=== PATIENT | male | born 1960 | race Caucasian/White ===

== ENCOUNTER 2017-06-11 09:56 | Day surgery (SDC) | payer BC, SELFPAY ==
[2017-06-11 10:13] VITALS: BP 153/92; RESP 16; TEMP 36.6; O2SAT 97; BMI 34.2
--- NOTE | 2017-06-11 12:00 | COLBX_PTH ---
PATIENT: JOSHUA CARR LOC: EN U#:[id number] AGE/SX: 57/M ROOM: RE06/11/[address]: Dr. Helen Bradford MD : 1960 BED: DIS: 06/11/2017 SPEC #: [id number] RECD: 06/11/17 15:18 STATUS: MOISES MICHELLE #: [id number] KEVIN: 06/11/17 12:[address]: Helen Bradford DEPT: SURGICAL PATHOLOGY RECD BY: Michele Sheriff ENTERED: 06/12/17 09:32 SP TYPE: COLON BX OTHR DR: Dr. Anjel Li MD Tissues: Descending colon Procedures: Surgery Specimen Level IV HEADER OPERATION: Colonoscopy PRE-OP DIAGNOSIS: Screening TISSUE SUBMITTED: Descending colon polyp biopsy MICROSCOPIC DIAGNOSIS Descending colon polyp, biopsy: Fragments of colonic mucosa, no pathologic diagnosis. Negative for adenomatous changes. SJ:leon 06/13/17 MICROSCOPIC DESCRIPTION Slides are reviewed. GROSS DESCRIPTION Received in fixative is one container labeled with the patient's name and designated descending colon polyp biopsy. The specimen consists of two irregular fragments of light saravia soft tissue that in aggregate measure 0.6 x 0.3 x 0.1 cm. The specimen is totally submitted in one cassette. / SJ:leon 06/12/17 TC:4 CPT: 57239
[2017-06-11 12:10] VITALS: BP 120/68; BP 153/92; PULSE 62; RESP 16; TEMP 36.3; O2SAT 98
[2017-06-11 12:15] VITALS: BP 130/72; BP 153/92; PULSE 62; RESP 16; O2SAT 98
[2017-06-11 12:20] VITALS: BP 133/63; BP 153/92; PULSE 59; O2SAT 97
[2017-06-11 12:25] VITALS: BP 135/63; BP 153/92; PULSE 63; RESP 16; TEMP 36.4; O2SAT 99
--- NOTE | 2017-06-11 12:54 | PCM.OPRPT ---
Report of Operation Date of Procedure: 06/11/17 Pre-Operative Diagnosis: Screening for colon cancer Post-Operative Diagnosis: Descending colon polyp Surgery/Procedure Performed:: Colonoscopy with cold forceps biopsy Type of Anesthesia:: MAC Specimen's removed: Descending colon polyp Estimated Blood Loss (mL): Minimal Description of Procedure: Procedure: Colonoscopy After reviewing the risks benefits, the patient was deemed in satisfactory condition to undergo procedure. After obtaining informed consent, the scope was passed under direct visualization. Throughout the procedure, the patient's blood pressure pulse and position saturations were monitored continuously anesthesia. The colonoscope was introduced through the anus and advanced to the cecum, identified by the appendiceal orifice, IC valve and transillumination. The colonoscopy was performed without difficulty. The patient tolerated procedure well. Quality of bowel prep was good. Findings: The perianal and digital rectal exam were normal. Small descending colon polyp was removed with cold forceps biopsy. Mild diverticulosis was noted of the descending colon. Anastomosis appears to be well-healed status post sigmoid colectomy for diverticulitis. Otherwise the colon (entire examined portion) appeared normal. Retroflexed view of the distal rectum and anal verge was normal and showed no anal or rectal abnormalities Impression: 1. Small sigmoid colon polyp. Biopsied 2. Mild diverticulosis of the sigmoid colon 3. The distal rectal and anal verge were normal on retroflexed view. Recommendations: Await biopsy Continue high-fiber diet Repeat colonoscopy in 3-5 years for screening purposes depending on biopsy - Complications none
[2017-06-11 13:01] VITALS: BP 153/92
== END 2017-06-11 13:01 | disposition home or self-care (01) ==
LOC: EN 10:00 → AC 10:06
PROVIDERS: Family Provider Family Medicine; PCP Family Medicine; Visit Provider Surgery
PROC: 0DJD8ZZ Inspection of Lower Intestinal Tract, Via Natural or Artificial Opening Endoscopic (ICD-10-PCS; CPT 45378; principal; 2017-06-11 10:55)
DX: Z12.11 Encounter for screening for malignant neoplasm of colon (principal); K63.5 Polyp of colon; K57.30 Diverticulosis of large intestine without perforation or abscess without bleeding; Z90.49 Acquired absence of other specified parts of digestive tract; I25.10 Atherosclerotic heart disease of native coronary artery without angina pectoris; I25.2 Old myocardial infarction; I10 Essential (primary) hypertension; Z87.891 Personal history of nicotine dependence; E78.00 Pure hypercholesterolemia, unspecified; E66.9 Obesity, unspecified; Z68.34 Body mass index [BMI] 34.0-34.9, adult; Z95.1 Presence of aortocoronary bypass graft; Z79.82 Long term (current) use of aspirin; Z79.899 Other long term (current) drug therapy; Z86.73 Personal history of transient ischemic attack (TIA), and cerebral infarction without residual deficits
CPT/HCPCS: 45380; 88305; J7120

== ENCOUNTER → 2018-07-31 09:21 | Outpatient (CLI) | payer BC, SELFPAY | PROVIDERS: Family Provider Family Medicine; PCP Family Medicine; Referring Provider Family Medicine; Visit Provider Family Medicine | DX: L02.91 Cutaneous abscess, unspecified (principal) | CPT/HCPCS: 87070; 87205 ==

== ENCOUNTER → 2018-10-26 07:07 | Outpatient (CLI) | payer BC, SELFPAY ==
[2018-10-26 08:26] LABS: Anion Gap 5 (5-15); BUN 36 mg/dL (7-18); BUN/Creat Ratio 21.3 RATIO (10-20); Calcium,Total 8.1 mg/dL (8.5-10.1); Chloride 103 mmol/L (98-107); Cholesterol 215 mg/dL (200); Creatinine, Serum 1.69 mg/dL (0.70-1.30); EST Glomerular Filtration Rate 45 mL/min (>60); Est Glom Filt Rate - Afr Amer 54 mL/min (>60); Glucose 192 mg/dL (74-106); High Density Lipoprotein 26 mg/dL; Potassium 3.5 mmol/L (3.5-5.1); Sodium Level 138 mmol/L (136-145); Triglycerides 475 mg/dL
== END ==
PROVIDERS: Family Provider Family Medicine; PCP Family Medicine; Referring Provider Family Medicine; Visit Provider Family Medicine
DX: I10 Essential (primary) hypertension (principal); R35.8 Other polyuria
CPT/HCPCS: 36415; 80048; 80061

== ENCOUNTER → 2018-11-02 07:19 | Outpatient (CLI) | payer BC, SELFPAY ==
[2018-11-02 08:08] LABS: Anion Gap 7 (5-15); BUN 29 mg/dL (7-18); BUN/Creat Ratio 18.1 RATIO (10-20); Calcium,Total 8.4 mg/dL (8.5-10.1); Chloride 105 mmol/L (98-107); EST Glomerular Filtration Rate 48 mL/min (>60); Est Glom Filt Rate - Afr Amer 58 mL/min (>60); Glucose 182 mg/dL (74-106); Potassium 3.5 mmol/L (3.5-5.1); Sodium Level 141 mmol/L (136-145)
== END ==
PROVIDERS: Family Provider Family Medicine; PCP Family Medicine; Referring Provider Family Medicine; Visit Provider Family Medicine
DX: R94.4 Abnormal results of kidney function studies (principal)
CPT/HCPCS: 36415; 80048

== ENCOUNTER → 2019-03-12 09:22 | Outpatient (CLI) | payer SELFPAY ==
--- NOTE | 2019-03-12 09:25 | RAD_ITS ---
STUDY: X-RAY CHEST REASON FOR EXAM: Male, 58 years old. Shortness of breath. History of ID and quadruple bypass, 2005. TECHNIQUE: PA and lateral views of the chest. COMPARISON: October 06, 2016. FINDINGS: The lungs are well-expanded. There is coronary interstitial coarsening without focal mass or infiltrate. There is no demonstrated pleural abnormality. Sternal cerclage wires and vascular clips are present from a prior sternotomy and coronary artery bypass graft procedure (CABG). The heart is normal in size. Normal mediastinum and ana. Normal visualized pulmonary arteries. Normal visualized aortic arch and descending thoracic aorta. There are diffuse degenerative changes of the visualized thoracic spine. There is degenerative osteoarthritis of the bilateral shoulders. There is no demonstrated abnormality of the visualized soft tissue structures of the upper abdomen. RAD/Chest PA and Lateral IMPRESSION: 1. Evidence of CABG procedure. 2. Chronic interstitial coarsening without acute cardiopulmonary disease. Electronically Signed: Armand Lynch DO at 16:57 EST Tel [phone], Service support ,
[2019-03-12 10:15] LABS: Absolute Lymphocyte Count 1.38 X10^3/uL (0.83-4.51); Absolute Neutrophil Count 6.6 X10^3/uL (2.0-7.7); Basophil# 0.04 X10^3/uL; Basophil% 0.4 % (0-1); Eosinophil# 0.07 X10^3/uL; Eosinophils% 0.8 % (0-5); Hematocrit 49.3 % (40-54); Hemoglobin 16.3 g/dL (13.0-16.5); Lymphocyte # 1.38 X10^3/ul (4.0); Lymphocyte % 15.5 % (19-41); Mean Corp Hgb Conc 33.1 g/dL (32-36); Mean Corpuscular Hgb 29.6 pg (27.0-32.0); Mean Corpuscular Volume 89.6 fL (80-94); Mean Platelet Vol. 10.4 fl (6.2-12.0); Monocyte# 0.74 X10^3/uL; Monocyte% 8.3 % (0-10); NRBC Flagged by Analyzer 0 % (0-5); Neutrophil # 6.57 X10^3/uL (2.7-7.7); Neutrophil % 73.9 % (47-70); Platelet Count 254 K/mm3 (150-450); RBC Distribution Width CV 13.3 % (11.6-14.6); RBC Distribution Width SD 43.4 fl (35.1-43.9); White Blood Count 8.9 K/mm3 (4.4-11.0)
[2019-03-12 10:45] LABS: Anion Gap 8 (5-15); BUN 27 mg/dL (7-18); BUN/Creat Ratio 18.4 RATIO (10-20); Calcium,Total 8.5 mg/dL (8.5-10.1); Chloride 104 mmol/L (98-107); Creatinine, Serum 1.47 mg/dL (0.70-1.30); EST Glomerular Filtration Rate 52 mL/min (>60); Est Glom Filt Rate - Afr Amer 63 mL/min (>60); Glucose 143 mg/dL (74-106); Potassium 3.2 mmol/L (3.5-5.1); Sodium Level 142 mmol/L (136-145)
== END ==
PROVIDERS: Family Provider Family Medicine; PCP Family Medicine; Referring Provider Family Medicine; Visit Provider Family Medicine
DX: R06.02 Shortness of breath (principal)
CPT/HCPCS: 36415; 71046; 80048; 83880; 85025

== ENCOUNTER 2019-03-24 11:22 | Inpatient (IN) | payer SELFPAY ==
[2019-03-24] VITALS (13 sets, daily range): BP systolic 149–189; BP diastolic 100–125; PULSE 94–115; RESP 13–20; TEMP 36.6–37; O2SAT 94–99; BMI 39.8; BMI 39.6; BMI 39.7
--- NOTE | 2019-03-24 11:57 | ED.VIS.GEN ---
History of Present Illness Chief Complaint: Shortness of Breath Informant: Patient Current Severity: Moderate Maximum Severity: Moderate Narrative: Patient arrives via private car from an outside ED. Apparently he was to be direct admitted but patient refused transport and decided to transport himself. He arrives to the emergency department. He is presenting as shortness of breath and was found to have pulmonary edema as well as elevated natruretic peptide. He was ruled out for a pulmonary embolism. Patient denies chest pain. Past Medical History - Allergies and Home Meds Allergies/Adverse Reactions: Allergies codeine Allergy (Verified 03/24/19 11:22) Rash Primary Care Physician: Anjel Li MD [Primary Care Provider] - Past Medical History: - - Coronary disease, hypertension, hypercholesterolemia Surgical History: coronary bypass surgery Smoking Status: Current every day smoker - Family History Maternal Family History: Reports: No pertinent history Review of Systems General: Denies: Fever Eyes: Denies: Visual changes - bilaterally Cardiovascular: Denies: Chest pain Respiratory: Reports: Dyspnea, Cough Gastrointestinal: Denies: Abdominal pain, Nausea Musculoskeletal: Denies: Myalgias, Arthralgias Neurological: Denies: Headache, Weakness Psych: Denies: Depression Endocrine: Denies: Polyuria Hematologic: Denies: Easy bruising Physical Exam Vital Signs/Narrative: Vital Signs Temp Pulse Resp BP Pulse Ox 03/24/19 11:45 108 H 18 183/110 H 94 03/24/19 11:33 113 H 13 96 03/24/19 11:23 98.0 F 115 H 17 189/125 H 96 General: Well nourished, Well developed Eyes: Negative for: Pale conjunctiva ENT: Moist mucous membranes Neck: Supple Cardiovascular: Regular rate, Regular rhythm Respiratory: - - Coarse bilateral breath sounds Abdomen: Soft Back: Nontender Extremities: - - Bilateral lower extremity edema Skin: Normal color Neurological: Alert, Oriented x3 Psychological: Normal affect Diagnostic/Tx/Re-eval - Medical Decision Making I reviewed outpatient work-up. Patient will receive Lasix and I will admit him upstairs. Admit stable condition ED Disposition - Plan for ED Patient: Disposition: [facility] Diagnosis: CHF (congestive heart failure) Referrals: Anjel Li MD [Primary Care Provider] -
--- NOTE | 2019-03-24 12:06 | EKG12_ITS ---
Test Reason : CHF Blood Pressure : / mmHG Vent. Rate : 101 BPM Atrial Rate : 101 BPM P-R Int : 132 ms QRS Dur : 092 ms QT Int : 378 ms P-R-T Axes : 072 085 247 degrees QTc Int : 490 ms Sinus tachycardia with occasional Premature ventricular complexes Possible Left atrial enlargement ST & T wave abnormality, consider inferolateral ischemia Abnormal ECG Confirmed by IWONA ALANIS, DWIANE ([id number]), editor news SANTI JIMÉNEZ ([id number]) on 03/26/2019 1:55:20 PM Referred By: Kaz Caesy Confirmed By:DWAINE BUSTILLO MD
--- NOTE | 2019-03-24 12:37 | HP.PCM_ITS ---
Problem List (1) CHF (congestive heart failure) Status: Chronic Qualifiers: Heart failure type: combined systolic and diastolic Heart failure chronicity: acute on chronic Qualified Code(s): I50.43 - Acute on chronic combined systolic (congestive) and diastolic (congestive) heart failure (2) Status post laparoscopic-assisted sigmoidectomy Status: Chronic Comment: 01/18/17 (3) S/P partial colectomy Status: Chronic Comment: 01/2017 (4) S/P left knee surgery Status: Chronic (5) History of carpal tunnel surgery Status: Acute (6) Benign essential hypertension Status: Chronic (7) Obesity Status: Chronic (8) Tobacco user Status: Chronic (9) CAD (coronary artery disease) Status: Chronic (10) Diverticulitis large intestine Status: Inactive History of Present Illness Date of Admission: 03/24/19 Chief Complaint: Shortness of breath for about 7 to 10 days The patient is a 58 year old M with history of coronary artery disease status post CABG, triple-vessel CVA, dyslipidemia and hypertension is being admitted through ER for progressive worsening of shortness of breath for about 2 weeks. He went to see his PCP and was given Z-Syed for presumed bronchitis but it did not get better and second time he was given prednisone but is still short of breath therefore went to [facility] ER. Patient positive of orthopnea for about 1 week, PND and dyspnea on exertion which progressed to dyspnea at rest. In [facility] ER his pulse ox was 96% on room air. On review of blood work, WBC 10.2 thousand neutrophils 88%, d-dimer 234, troponin 0 0.073, proBNP 2027, BUN/creatinine 30/1.66, glucose 223. CTPA was done for elevated d-dimer and reported a small bilateral pleural effusion. No PE. Multiple bilateral pulmonary nodules measuring up to 8 mm. Patient then came to our ER through his own vehicle as he does not have insurance for transfer. In our ER, heart rate 115, blood pressure 189/125, respiratory rate 17, pulse ox 96% on room air. EKG was done and shows T wave inversion in 1, V3 to V4. Enlargement ER, he got Lasix 40 mg IV and aspirin. Past Medical History Past Medical History (Chronic Problems): Chronic Problems (Last Reviewed 05/24/17 @ 09:04 by Silke Billingsley) CHF (congestive heart failure) (Chronic) Status post laparoscopic-assisted sigmoidectomy (Chronic) 01/18/17 S/P partial colectomy (Chronic) 01/2017 S/P left knee surgery (Chronic) Benign essential hypertension (Chronic) Obesity (Chronic) Tobacco user (Chronic) CAD (coronary artery disease) (Chronic) Medical History: Medical History (Last Reviewed 05/24/17 @ 09:04 by Silke Billingsley) Benign essential hypertension (Chronic) I10 Obesity (Chronic) E66.9 Tobacco user (Chronic) Z72.0 CAD (coronary artery disease) (Chronic) I25.10 Diverticulitis large intestine (Acute) K57.32 Allergies codeine Allergy (Verified 03/24/19 11:22) Rash Home Medications: Ambulatory Orders Medication Instructions Recorded Amlodipine Besylate [Norvasc] 10 mg PO DAILY 10/06/16 Fenofibrate 160 mg PO DAILY 10/06/16 Lisinopril [Zestril] 20 mg PO BID 10/06/16 Potassium Chloride [Klor-Con 10] 20 meq PO BID 10/06/16 Triamterene/Hydrochlorothiazid 1 ea PO DAILY 10/06/16 [Dyazide 37.5-25 Capsule] Aspirin 81 mg PO DAILY 01/05/17 Escitalopram Oxalate [Lexapro] 10 tab PO DAILY 01/05/17 Surgical History: Surgical History (Last Reviewed 05/24/17 @ 09:04 by Silke Billingsley) Status post laparoscopic-assisted sigmoidectomy (Acute) Z90.49 01/18/17 S/P partial colectomy (Acute) Z90.49 01/2017 S/P left knee surgery (Acute) Z98.890 History of carpal tunnel surgery (Acute) Z92.89 Surgical History: coronary bypass surgery Smoking Status: Current every day smoker Tobacco Use: Cigarettes - 1 pack in about 3 days started in teenage age - *Family History Maternal History Items: No pertinent history Review of Systems Constitutional: Denies: Chills, Fever HEENT: Denies: Head Aches, Sinus Congestion, Sinus Drainage Cardiovascular: Denies: Chest Pain, Chest Pressure, Palpitations Respiratory: Reports: Cough, Shortness of Breath, Shortness of breath at rest, Shortness of breath upon exertion, Sputum production Gastrointestinal: Denies: Abdominal Pain, Nausea, Vomiting Genitourinary: Denies: Dysuria, Frequency Musculoskeletal: Denies: Joint Pain, Joint Tenderness Skin: Denies: Rash, Wounds Neurological: Denies: Numbness, Tingling, Focal weakness Psychiatric: Reports: Anxiety. Denies: Depression, Homicidal Ideations, Suicidal Ideations Hematologic/ Lymphatic: Denies: Easy Bruising, Easy Bleeding VTE Information - Inpt Only VTE Present on Admission: Yes VTE Mechan Device Prophylaxis: None VTE Pharm Prophylaxis ordered?: Yes - Physical Exam Vitals/I&O's: Vital Signs Temp Pulse Resp BP Pulse Ox 98.0 F 101 H 20 H 156/103 H 94 03/24/19 11:23 03/24/19 12:06 03/24/19 12:06 03/24/19 12:06 03/24/19 12:06 Oxygen Delivery Method Room Air Weight: 262 lb Body Mass Index (BMI) 39.8 General: Alert, Oriented x3, Cooperative HEENT: Atraumatic, PERRLA, EOMI, Normocephalic Oral: Dry Mucosa Neck: Supple, No JVD, Negative Carotid Bruits Lungs: Diminished - Air entry diminished in bilateral lung bases., Rales - Bilateral, Short of Breath, Tachypneic - lower bases coarse rales present Cardiovascular: Regular rate, Regular Rhythm, Normal S1, Normal S2, No murmurs, - - Occasional PVC present Abdomen: Bowel Sounds Present, Soft, Non Tender, Distended - Feels mild distention Extremities: Capillary Refill Less than 3 Seconds, Edema Skin: No rashes, No breakdown Musculoskeletal: No Tenderness to Palpation of Joints or Extremities, Arthritic Changes Neurological: Cranial nerves II-XII grossly intact, Deep Tendon Reflexes 2+/4 and Symmetrical, Neuro grossly intact Psych/Mental Status: Normal Affect, Appropriate Assessment/Plan All Active Problems (Last Reviewed 05/24/17 @ 09:04 by Silke Billingsley) History of carpal tunnel surgery (Acute) The patient is a 58 year old M with history of coronary artery disease status post CABG, triple-vessel CVA, dyslipidemia and hypertension is being admitted through ER for progressive worsening of shortness of breath for about 2 weeks. He went to see his PCP and was given Z-Syed for presumed bronchitis but it did not get better and second time he was given prednisone but is still short of breath therefore went to [facility] ER. Patient positive of orthopnea for about 1 week, PND and dyspnea on exertion which progressed to dyspnea at rest. 1. Acute on chronic heart failure with preserved EF: Patient had patient had last cath in January 2017 reported as EF 60%. [place] to mid LAD patent. Saphenous graft to circumflex is totally occluded. Saphenous vein graft to RPDA proximal LAD with 60 to 70% stenosis. At that time medical management was recommended. Last echo in 2012 shows EF 60% with mild concentric LVH. Patient is being admitted in PCU. Start on Lasix 40 mill grams IV twice daily for diuresis, monitor intake and output, electrolytes, kidney function and daily weight. On fluid restriction 1500 mL daily. Monitor cardiac enzymes. 2D echo ordered. 2. Coronary artery disease status post CABG about 14 to 15 years ago: Patient follows Dr. orellana but has not seen for quite some time. 3. Diabetes mellitus type 2, hypertension and dyslipidemia: Patient states he has borderline diabetes blood glucose is 223 in [facility] and [facility] ED lab. A1c tomorrow a.m. Accu-Chek before meals and at bedtime and cover with Humalog sliding scale and titrate accordingly. 4. Hypertension: Patient blood pressure was high at 183/110 in ED. Currently 150/113: Seems mainly due to noncompliance. Patient home medication reconciled. On amlodipine 10mg, lisinopril 10 mg twice daily and hydralazine 10 mg IV every 4 hourly as needed for systolic blood pressure more than 170 mmHg. We will titrate the medications as per blood pressure and kidney function. 5. CKD stage III: Patient creatinine has been normal until January 2017 after that next creatinine was 1.7 in October 2018. It was 1.47 ON March 12, 2019 and then 1.66 today. Lisinopril dose decreased to 10 mg twice daily. Hold triamterene?HCTZ. Monitor intake and output, kidney function, electrolytes and evaluate lisinopril dose. 6 Recent history of sigmoid diverticulitis/abscess status post partial colectomy in January 2017 7. Chronic smoker with nicotine dependence with CT finding of multiple pulmonary nodules: Patient started smoking in teenage, still smokes about 2 packs in 1 week. Denies use of alcohol or street drugs. CT chest showed multiple bilateral pulmonary nodules measuring up to 8 mm. Follow-up CT chest as an outpatient as per Fleischner Society recommendation D prophylaxis: On Lovenox 40 mg subcut daily. Code Visit Inpatient E&M: 65693 Init Hosp L3
--- NOTE | 2019-03-24 13:11 | ECHOCS_ITS ---
Reason For Study: SOB, CHF Procedure This was a 2D Doppler, Color Flow transthoracic echocardiogram. The study was technically difficult. Contrast injection was performed. Exam performed portable in patient room. Left Ventricle Normal LV size. The estimated ejection fraction is 45 %. There is mild to moderate global hypokinesis of the left ventricle. Right Ventricle Normal RV size. Normal systolic function. Atria The left atrium is mildly enlarged. Normal right atrium. Mitral Valve Normal mitral valve. Tricuspid Valve Normal tricuspid valve. Aortic Valve The aortic valve is not well visualized. Pulmonic Valve The pulmonic valve is not well visualized. Great Vessels Normal aortic root. The pulmonary artery is normal size. Normal inferior vena cava. Pericardium/Pleural No pericardial effusion. Medication Diluted definity 4.5ml given slow IV push to enhance endocardial definition. MMode/2D Measurements & Calculations RVDd: 4.5 cm LVOT diam: 2.1 cm Ao root diam: 3.7 cm LVOT area: 3.6 cm2 LAV(MOD-bp): 61.5 ml SV(MOD-sp4): 62.7 ml LVAd ap4: 47.0 cm2 LAV(MOD-bp) Indexed: 26.3 ml/m2 EDV(MOD-sp4): 178.2 ml LAV(MOD-sp2): 53.5 ml EDV(sp4-el): 190.2 ml LAV(MOD-sp4): 71.6 ml LVAs ap4: 35.6 cm2 ESV(MOD-sp4): 115.5 ml ESV(sp4-el): 119.6 ml EF(MOD-sp4): 35.2 % EF(sp4-el): 37.1 % SV(sp4-el): 70.6 ml LA dimension(2D): 4.2 cm LA A4 area: 21.6 cm2 RA A4 area: 12.8 cm2 Time Measurements MV dec time: 0.11 sec Doppler Measurements & Calculations MV E max blayne: 113.7 cm/sec Lat Peak E' Blayne: 5.2 cm/sec Med Peak E' Blayne: 5.8 cm/sec MV A max blayne: 50.3 cm/sec E/E' lat: 21.7 E/E' med: 19.6 MV E/A: 2.3 Ao V2 max: 165.4 cm/sec LV V1 max: 72.5 cm/sec SV(LVOT): 43.9 ml Ao max P.0 mmHg LV V1 max P.1 mmHg Ao V2 mean: 116.5 cm/sec LV V1 mean P.1 mmHg Ao mean P.0 mmHg LV V1 mean: 49.8 cm/sec Ao V2 VTI: 25.1 cm LV V1 VTI: 12.1 cm J LUIS(I,D): 1.8 cm2 J LUIS(V,D): 1.6 cm2 TR max blayne: 297.5 cm/sec TR max P.9 mmHg Interpretation Summary Normal LV size. The estimated ejection fraction is 45 %. There is mild to moderate global hypokinesis of the left ventricle. The left atrium is mildly enlarged. Contrast injection was performed. Ordering Physician: Kaz Casey Referring Physician: DWAINE GARCIA Performed By: Alecia Simmons, DAISY, RVT
[2019-03-24] MEDS: Enoxaparin 40 MG/0.4 ML Syringe SC (14:37)
[2019-03-24] MEDS: amLODIPine 10 MG Tablet PO (14:37)
[2019-03-24] MEDS: Lisinopril 10 MG Tablet PO ×2 (14:37→21:58)
[2019-03-24 17:01] LABS: Bedside Glucose 166 mg/dL (70-110)
[2019-03-24] MEDS: Furosemide 40 MG/4 ML Vial IV (17:17)
[2019-03-24] MEDS: 0.9% Saline Lock 10 ML Syringe IV (17:17)
[2019-03-24 17:56] LABS: Bedside Glucose 104 mg/dL (70-110)
--- NOTE | 2019-03-24 19:23 | CON.PCM_ITS ---
Reason for Consult Date of Consultation: 03/24/19 Reason for Consultation: Shortness of breath History of Present Illness: The patient is a 58 year old M with a known history of coronary artery disease who says that over the last few weeks he had been short of breath and went to see his primary physician. He was initially thought to be having an upper respiratory tract infection and was given antibiotics with azithromycin. He did not feel better and went back and was given a course of prednisone. He has not been able to sleep lying flat and this morning got so bad that he went to the emergency room at [facility] and was transferred here. He was last seen by me in 2016 and at that time he had been doing well. He is status post coronary artery bypass surgery in 2004 with a left internal mammary artery to the diagonal vessel, free VIBHA from the GREENBERG to the LAD, saphenous vein graft to the first obtuse marginal branch, and saphenous vein graft to the posterior descending artery of the right coronary artery. He also has a history of hypertension, hyperlipidemia, previous ischemic stroke of the left thalamus, and left atrial appendage ligation. His last catheterization was in January 2017 at that time it demonstrated moderate left main disease with 50% stenosis, left anterior descending artery was totally occluded, left circumflex artery was totally occluded, proximal right coronary artery was totally occluded. The left internal mammary artery to the left anterior descending artery was patent, the saphenous vein graft to the circumflex artery was totally occluded in the saphenous vein graft to the right posterior descending artery had a proximal cleft like 60 to 70% stenosis noted. His previous ejection fraction was noted to be normal. Due to his presentation with his recurrent shortness of breath he was transferred here for further evaluation. In the emergency room he was noted to be markedly hypertensive with systolic blood pressures greater than 180 [address] CAT scan of the chest demonstrated small bilateral pleural effusions he was administered some Lasix and says that he is feeling much better [] Past Medical History Allergies/Adverse Reactions: Allergies codeine Allergy (Verified 03/24/19 11:22) Rash Home Medications: Ambulatory Orders Medication Instructions Recorded Amlodipine Besylate [Norvasc] 10 mg PO DAILY 10/06/16 Fenofibrate 160 mg PO DAILY 10/06/16 Lisinopril [Zestril] 20 mg PO BID 10/06/16 Potassium Chloride [Klor-Con 10] 20 meq PO BID 10/06/16 Triamterene/Hydrochlorothiazid 1 ea PO DAILY 10/06/16 [Dyazide 37.5-25 Capsule] Aspirin 81 mg PO DAILY 01/05/17 Escitalopram Oxalate [Lexapro] 10 tab PO DAILY 01/05/17 Past Medical History (Chronic Problems): Chronic Problems (Last Reviewed 05/24/17 @ 09:04 by Silke Billingsley) CHF (congestive heart failure) (Chronic) Status post laparoscopic-assisted sigmoidectomy (Chronic) 01/18/17 S/P partial colectomy (Chronic) 01/2017 S/P left knee surgery (Chronic) Benign essential hypertension (Chronic) Obesity (Chronic) Tobacco user (Chronic) CAD (coronary artery disease) (Chronic) Surgical History: coronary bypass surgery - *Family History Maternal History Items: No pertinent history Smoking Status: Current every day smoker Tobacco Use: Cigarettes Alcohol: None Drugs: None Review of Systems - Review of Systems General: Denies: Fever, Night Sweats, Fatigue HEENT: Denies: Vision Change Cardiovascular: Reports: Shortness of Breath, Shortness of Breath at Rest, Shortness of Breath with Exertion. Denies: Chest Discomfort, Orthopnea, PND, Peripheral Edema, Palpitations, Lightheadedness, Dizziness, Near Syncope, Syncope Respiratory: Denies: Cough, Sputum Production, Hemoptysis Gastrointestinal: Denies: Hematemesis, Hematochezia, Melena Genitourinary: Denies: Dysuria, Hematuria Muscoloskeletal: Denies: Myalgias Skin: Denies: Rash Neurological: Denies: Dizziness Psychiatric: Denies: Anxiety Subjectve: The patient was seen and evaluated. Objective: Vital Signs Temp Pulse Resp BP Pulse Ox 98.5 F 106 H 18 155/100 H 95 03/24/19 17:11 03/24/19 17:11 03/24/19 17:11 03/24/19 18:25 03/24/19 17:11 Oxygen Delivery Method Room Air Weight: 268 lb 8.368 oz Body Mass Index (BMI) 39.6 Intake and Output for Last 24 Hours 03/22/19 03/23/19 03/24/19 23:59 23:59 23:59 Intake Total 1200 / 1200 Output Total 600 / 600 Balance 600 / 600 General: Awake, Alert, Oriented x 3 HEENT: PERRL, EOMI, Sclera Non Icteric Neck: Supple, Good ROM, No Lymph Node Enlargement Lungs: Clear to auscultation Cardiovascular: Regular Rhythm, Normal S1, Normal S2, No Murmurs, No Rubs, No Gallops Vascular: No Carotid Bruits, Normal Femoral Pulses, Normal Radial Pulses, Normal Dorsalis Pedal Pulse, Normal Posterior Tibial Pulses Abdomen: Bowel Sounds Present, Soft, Non Tender, No HSM, No Organomegaly Extremities: No Cyanosis, No Clubbing, No edema Musculoskeletal: No Erythema Skin: No Rashes Lymphatic: No Lymph Node Enlargement Neurological: No Focal Motor or Sensory Deficit 03/24/19 14:00: Troponin I 0.076 H 03/24/19 16:46: Troponin I 0.076 H Rhythm: EKG: Sinus rhythm with evidence of left ventricular hypertrophy and nonspecific ST changes ECHO: Global reduction in left ventricular systolic function estimated EF 45% Stress Test: Cardiac Cath: PCI: CT Surgery: Holter monitor: EPS: PPM: CXR: Chest CT Scan: Assessment/Plan 1. Acute congestive heart failure-systolic * Patient presents with marked elevation in blood pressure and short of breath with bilateral pleural effusions and an elevated proBNP. The above is all consistent with congestive heart failure. His echocardiogram demonstrated globally reduced left ventricular systolic function. * Recommendation at this time will be to optimize his medical therapy by giving him intravenous Lasix * Continue blood pressure medication * [place] beta-hitesh * Further recommendations will depend on his clinical response * 2. Marked hypertension * The patient presents with a hypertensive urgency, likely secondary to medication noncompliance. * His medications have been reinstituted and we have emphasized to him the importance of taking his medications. * 3. Coronary artery disease * He does have a mildly abnormal troponin. He has known coronary artery disease status post bypass surgery. My recommendation at this time would be to continue to trend his troponins if they remain flat then I will recommend a pharmacologic myocardial perfusion stress test and depending on those results further recommendations will then be made. * 4. Chronic kidney disease. * He does have evidence of chronic kidney disease. * We will continue to follow his kidney function. * * Thank you for allowing me to participate in the care of your patient. Please don't hesitate to call if any issues arise
[2019-03-24] MEDS: Carvedilol 6.25 MG Tablet PO (21:58)
[2019-03-24] MEDS: Zolpidem Tartrate 5 MG Tablet PO (22:02)
[2019-03-24 22:10] LABS: Bedside Glucose 111 mg/dL (70-110)
[2019-03-25] VITALS (18 sets, daily range): BP systolic 151–164; BP diastolic 91–112; PULSE 82–130; RESP 18–20; TEMP 36.7–37.2; O2SAT 94–97
[2019-03-25 05:41] LABS: Absolute Lymphocyte Count 1.95 X10^3/uL (0.83-4.51); Absolute Neutrophil Count 5.7 X10^3/uL (2.0-7.7); Basophil# 0.07 X10^3/uL; Basophil% 0.8 % (0-1); Eosinophil# 0.11 X10^3/uL; Eosinophils% 1.3 % (0-5); Hematocrit 46.9 % (40-54); Hemoglobin 15.4 g/dL (13.0-16.5); Lymphocyte # 1.95 X10^3/ul (4.0); Lymphocyte % 22.3 % (19-41); Mean Corp Hgb Conc 32.8 g/dL (32-36); Mean Corpuscular Hgb 28.9 pg (27.0-32.0); Mean Platelet Vol. 10.9 fl (6.2-12.0); Monocyte# 0.82 X10^3/uL; Monocyte% 9.4 % (0-10); NRBC Flagged by Analyzer 0 % (0-5); Neutrophil # 5.74 X10^3/uL (2.7-7.7); Neutrophil % 65.6 % (47-70); Platelet Count 282 K/mm3 (150-450); RBC Distribution Width CV 13.4 % (11.6-14.6); RBC Distribution Width SD 43.4 fl (35.1-43.9); Red Blood Count 5.33 M/mm3 (4.6-6.2); White Blood Count 8.7 K/mm3 (4.4-11.0)
[2019-03-25 06:27] LABS: ALB/GLOB Ratio 0.7 RATIO (0.9-2.4); AST(SGOT) 32 U/L (15-37); Alanine Aminotransfer ALT/SGPT 68 U/L (16-61); Albumin, Serum 2.6 g/dL (3.2-5.0); Alkaline Phosphatase 42 U/L (45-117); Anion Gap 9 (5-15); BUN 32 mg/dL (7-18); BUN/Creat Ratio 20.9 RATIO (10-20); Calcium,Total 8.4 mg/dL (8.5-10.1); Chloride 100 mmol/L (98-107); Creatinine, Serum 1.53 mg/dL (0.70-1.30); EST Glomerular Filtration Rate 50 mL/min (>60); Est Glom Filt Rate - Afr Amer 61 mL/min (>60); Estimated Creatinine Clearance 53.27 ml/min; Globulin 3.8 g/dL (2.2-4.2); Glucose 149 mg/dL (74-106); Magnesium 1.7 mg/dL (1.6-2.6); Potassium 3.1 mmol/L (3.5-5.1); Protein, Total 6.4 g/dL (6.4-8.2); Sodium Level 138 mmol/L (136-145); Thyroid Stim Hormone (TSH) 0.87 uIU/mL (0.358-3.74)
[2019-03-25 06:46] LABS: Bedside Glucose 155 mg/dL (70-110)
[2019-03-25] MEDS: Insulin Lispro 100 UNIT/ML INSULN.PEN SC ×2 (06:46→21:45)
--- NOTE | 2019-03-25 07:20 | PN.CARD_ITS ---
Subjectve: Patient seen and evaluated Objective: Vital Signs Temp Pulse Resp BP Pulse Ox 98.0 F 90 18 155/112 H 97 03/25/19 05:11 03/25/19 05:11 03/25/19 05:11 03/25/19 05:11 03/25/19 05:11 Oxygen Delivery Method Room Air Weight: 266 lb 15.677 oz Body Mass Index (BMI) 39.6 Intake and Output for Last 24 Hours 03/23/19 03/24/19 03/25/19 23:59 23:59 23:59 Intake Total 1200 / 1740 1040 / 1040 Output Total 600 / 600 600 / 600 Balance 600 / 1140 440 / 440 General: Awake, Alert, Oriented x 3 HEENT: PERRL, EOMI, Sclera Non Icteric Neck: Supple, Good ROM, No Lymph Node Enlargement Lungs: Clear to auscultation Cardiovascular: Regular Rhythm, Normal S1, Normal S2, No Murmurs, No Rubs, No Gallops Vascular: No Carotid Bruits, Normal Femoral Pulses, Normal Radial Pulses, Normal Dorsalis Pedal Pulse, Normal Posterior Tibial Pulses Abdomen: Bowel Sounds Present, Soft, Non Tender, No HSM, No Organomegaly Extremities: No Cyanosis, No Clubbing, No edema Musculoskeletal: No Erythema Skin: No Rashes Lymphatic: No Lymph Node Enlargement Neurological: No Focal Motor or Sensory Deficit Psych/Mental Status: Appropriate 03/24/19 14:00: Troponin I 0.076 H 03/24/19 16:46: Troponin I 0.076 H 03/24/19 20:35: Troponin I 0.082 H 03/25/19 05:06: WBC 8.7, RBC 5.33, Hgb 15.4, Hct 46.9, MCV 88.0, MCH 28.9, MCHC 32.8, Plt Count 282, MPV 10.9, Immature Gran % (Auto) 0.600, Neut % (Auto) 65.6, Lymph % (Auto) 22.3, [place] % (Auto) 9.4, Eos % (Auto) 1.3, Baso % (Auto) 0.8, Absolute Neuts (auto) 5.7, Nucleated RBC % 0 03/25/19 05:06: Sodium 138, Potassium 3.1 L, Chloride 100, Carbon Dioxide 29.0, Anion Gap 9, BUN 32 H, Creatinine 1.53 H, Est GFR (MDRD) Af Amer 61, Est GFR (MDRD) Non-Af 50 L, BUN/Creatinine Ratio 20.9 H, Glucose 149 H, Calcium 8.4 L, Magnesium 1.7, Total Bilirubin 0.80 Rhythm: EKG: ECHO: Stress Test: Cardiac Cath: PCI: CT Surgery: Holter monitor: EPS: PPM: CXR: Chest CT Scan: Medical Necessity - Tobacco Use Smoking Status: Current every day smoker Tobacco Use: Cigarettes Assessment/Plan 1. Acute congestive heart failure-systolic * Patient presents with marked elevation in blood pressure and short of breath with bilateral pleural effusions and an elevated proBNP. The above is all consistent with congestive heart failure. His echocardiogram demonstrated globally reduced left ventricular systolic function. * Recommendation at this time will be to optimize his medical therapy by giving him intravenous Lasix * Continue blood pressure medication * [place] beta-hitesh * Further recommendations will depend on his clinical response * 2. Marked hypertension * The patient presents with a hypertensive urgency, likely secondary to medication noncompliance. * His medications have been reinstituted and we have emphasized to him the importance of taking his medications. * 3. Coronary artery disease * He does have a mildly abnormal troponin. He has known coronary artery disease status post bypass surgery. My recommendation at this time would be to continue to trend his troponins if they remain flat then I will recommend a pharmacologic myocardial perfusion stress test and depending on those results further recommendations will then be made. * 4. Chronic kidney disease. * He does have evidence of chronic kidney disease. * We will continue to follow his kidney function. * * Thank you for allowing me to participate in the care of your patient. Please don't hesitate to call if any issues arise
[2019-03-25] MEDS: Fenofibrate 145 MG Tablet PO (07:59)
[2019-03-25] MEDS: amLODIPine 10 MG Tablet PO (07:59)
[2019-03-25] MEDS: Lisinopril 10 MG Tablet PO ×2 (07:59→21:42)
[2019-03-25] MEDS: Escitalopram Oxalate 10 MG Tablet PO (07:59)
[2019-03-25] MEDS: Carvedilol 6.25 MG Tablet PO (07:59)
[2019-03-25] MEDS: Aspirin 81 MG TAB.CHEW PO (07:59)
[2019-03-25] MEDS: Polyethylene Glycol 3350 17 GM PACKET PO (08:00)
[2019-03-25] MEDS: Enoxaparin 40 MG/0.4 ML Syringe SC (08:00)
[2019-03-25] MEDS: 0.9% Saline Lock 10 ML Syringe IV ×2 (08:00→11:04)
[2019-03-25 08:05] LABS: Hemoglobin A1c 6.1 % (4.2-6.3)
--- NOTE | 2019-03-25 10:39 | CASEMGMT ---
TYLOR met with patient, introduced self and role at [facility]. Patient sees Dr Li for his PCP and he pays out of pocket. He has not been taking any of his meds as he has felt great. He said he was doing okay financially before paying for them. TYLOR told him SW can watch what medications they will discharge him on and SW will see if they are expensive. TYLOR may be able to give him some resources to help with cost of meds. He thanked TYLOR for checking in with him. Mary BEYER MSW
[2019-03-25] MEDS: Furosemide 40 MG/4 ML Vial IV ×2 (11:04→18:16)
[2019-03-25] MEDS: Ipratropium/Albuterol Sulfate 3 ML AMPUL.NEB INHALATION ×3 (11:11→19:52)
[2019-03-25 11:51] LABS: Bedside Glucose 123 mg/dL (70-110)
--- NOTE | 2019-03-25 13:04 | CASEMGMT ---
JOSE LUIS MOSS assessment: Face to Face with patient for initial transition planning/care coordination assessment. JOSE LUIS MOSS introduced self and role at [facility], pt voices understanding and consents to assessment at this time. Pt is sitting up in chair in no distress at this time. Pt is A/Ox4 at this time and answers all questions appropriately at this time. Pt has a family member at bedside during assessment. Care providers, pharmacy, and demographics verified at this time. PCP: Guillermo Specialists: [facility] Pharmacy: [facility] Insurance: Self pay Prescription Benefit: Self pay Living Will/HPOA: Pt states does not have LW/HPOA and declines AD info at this time. LNOK: Abbe Emerson, ; Violetta Escobedo, mother Living Arrangements: Pt states lives with in 2 story home and states no concerns at home at this time. Pt states is independent with ADL's. Transportation: Pt states drives self and states no transportation concerns at home at this time. DME/HHC: Pt states has a cpap that he bought and states no need for any further DME at this time. Pt states no hx of HHC or SNF in the past. Pt states no concerns with going home at time of discharge. 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 Pt states smokes about 1/2pk/day and states does not drink ETOH. Pt states no further concerns/needs at this time. CM to follow for any further discharge planning/needs. Advised pt to ask for CM if any further questions/concerns/needs arise, voices understanding. Pt Goal: Home Plan: [place] JOSE LUIS MOSS
--- NOTE | 2019-03-25 13:55 | EKG12_ITS ---
Test Reason : AM EKG Blood Pressure : / mmHG Vent. Rate : 085 BPM Atrial Rate : 085 BPM P-R Int : 136 ms QRS Dur : 100 ms QT Int : 410 ms P-R-T Axes : 070 084 217 degrees QTc Int : 487 ms Normal sinus rhythm ST & T wave abnormality, consider inferolateral ischemia Prolonged QT Abnormal ECG When compared with ECG of 24-MAR-2019 11:54, MANUAL COMPARISON REQUIRED, DATA IS UNCONFIRMED Confirmed by NEO ALANIS, COLE ([id number]), fashion editor SANTI JIMÉNEZ ([id number]) on 03/31/2019 10:04:25 AM Referred By: Kaz Casey Confirmed By:COLE LARSON MD
[2019-03-25 15:00] LABS: Potassium 3.6 mmol/L (3.5-5.1)
[2019-03-25 15:04] LABS: Phosphorus 5.9 mg/dL (2.5-4.9)
--- NOTE | 2019-03-25 16:27 | PCM.PN.HOSP ---
Subjective: CC: Follow-up for heart failure Patient is sitting in the chair. Shortness of breath, dyspnea at rest has improved. Seen by store mgr. No fever or chills. Heart rate in 80s to 90s Weight loss 2 pounds. 1900 mL urine output. Negative fluid balance 1300 ML Vitals/I&O's: Vital Signs Temp Pulse Resp BP Pulse Ox 98.4 F 93 18 151/99 H 94 03/25/19 11:09 03/25/19 15:24 03/25/19 15:24 03/25/19 11:09 03/25/19 11:11 Oxygen Delivery Method Room Air Weight: 266 lb 15.677 oz Body Mass Index (BMI) 39.6 Intake and Output for Last 24 Hours 03/23/19 03/24/19 03/25/19 23:59 23:59 23:59 Intake Total 1200 / 1740 2025.25 / 2025.25 Output Total 600 / 600 1300 / 1300 Balance 600 / 1140 725.25 / 725.25 General: Alert, Oriented x3, Cooperative HEENT: Atraumatic, PERRLA, EOMI, Normocephalic Neck: Supple, No JVD, Negative Carotid Bruits Lungs: Diminished - Air entry is diminished in bilateral lung bases, Rhonchi Cardiovascular: Regular rate, Regular Rhythm, Normal S1, Normal S2, No murmurs Abdomen: Bowel Sounds Present, Soft, Non Tender, Non-Distended Extremities: No edema, Capillary Refill Less than 3 Seconds Skin: No rashes, No breakdown Musculoskeletal: No Tenderness to Palpation of Joints or Extremities, Arthritic Changes Neurological: Cranial nerves II-XII grossly intact Psych/Mental Status: Normal Affect, Appropriate Laboratory Results 03/24/19 13:37: POC Glucose 104 03/24/19 16:18: POC Glucose 166 H 03/24/19 16:46: Troponin I 0.076 H 03/24/19 20:35: Troponin I 0.082 H 03/24/19 22:00: POC Glucose 111 H 03/25/19 05:06: WBC 8.7, RBC 5.33, Hgb 15.4, Hct 46.9, MCV 88.0, MCH 28.9, MCHC 32.8, RDW Std Deviation 43.4, RDW Coeff of Donna 13.4, Plt Count 282, MPV 10.9, Immature Gran % (Auto) 0.600, Neut % (Auto) 65.6, Lymph % (Auto) 22.3, [place] % (Auto) 9.4, Eos % (Auto) 1.3, Baso % (Auto) 0.8, Absolute Neuts (auto) 5.7, Absolute Lymphs (auto) 1.95, Nucleated RBC % 0 03/25/19 05:06: Sodium 138, Potassium 3.1 L, Chloride 100, Carbon Dioxide 29.0, Anion Gap 9, BUN 32 H, Creatinine 1.53 H, Estim Creat Clear Calc 53.27, Est GFR (MDRD) Af Amer 61, Est GFR (MDRD) Non-Af 50 L, BUN/Creatinine Ratio 20.9 H, Glucose 149 H, Calcium 8.4 L, Magnesium 1.7, Total Bilirubin 0.80, AST 32, ALT 68 H, Alkaline Phosphatase 42 L, Total Protein 6.4, Albumin 2.6 L, Globulin 3.8, Albumin/Globulin Ratio 0.7 L, TSH 0.87 03/25/19 05:06: Hemoglobin A1c 6.1 03/25/19 06:38: POC Glucose 155 H 03/25/19 11:48: POC Glucose 123 H 03/25/19 14:19: Phosphorus 5.9 H 03/25/19 14:19: Potassium 3.6 Current Medications Acetaminophen (Tylenol) 650 mg PO Q6H PRN PRN PRN Reason: Pain Score 1-3/Temp > 100.7 F Albuterol/Ipratropium (Duoneb) 3 ml INHALATION Q4H.RT [facility] Last Admin: 03/25/19 15:24 Dose: 3 ml Documented by: Amlodipine Besylate (Norvasc) 10 mg PO DAILY [facility] Last Admin: 03/25/19 07:59 Dose: 10 mg Documented by: Aspirin (Aspirin, Baby) 81 mg PO DAILY@0800 [facility] Last Admin: 03/25/19 07:59 Dose: 81 mg Documented by: Carvedilol (Coreg) 6.25 mg PO BID [facility] Last Admin: 03/25/19 07:59 Dose: 6.25 mg Documented by: Dextrose (D50w Syringe) 0 gm IV X1 PRN; Protocol PRN Reason: Hypoglycemia Enoxaparin Sodium (Lovenox) 40 mg SC DAILY [facility] Last Admin: 03/25/19 08:00 Dose: 40 mg Documented by: Escitalopram Oxalate (Lexapro) 10 mg PO DAILY [facility] Last Admin: 03/25/19 07:59 Dose: 10 mg Documented by: Fenofibrate (Tricor) 145 mg PO DAILYCM [facility] Last Admin: 03/25/19 07:59 Dose: 145 mg Documented by: Furosemide (Lasix) 40 mg IV BIDLX [facility] Last Admin: 03/25/19 11:04 Dose: 40 mg Documented by: Glucagon () 1 mg IM .X1 PRN PRN Reason: Hypoglycemia Guaifenesin (Robitussin) 20 ml PO Q4H PRN PRN PRN Reason: COUGH Hydralazine HCl (Apresoline Iv) 10 mg IV Q4H PRN PRN PRN Reason: sbp>170 MMHG Sodium Chloride () 250 mls @ 15 mls/hr IV .[id number] PRN PRN Reason: Saline Flush Last Infusion: 03/25/19 11:04 Dose: 0 mls/hr Documented by: Sodium Chloride () 1,000 mls @ 0 mls/hr IV .Q0M [facility] Insulin Human Lispro (Humalog Kwikpen (Bkc)) 0 unit SC [facility]; Protocol Last Admin: 03/25/19 11:59 Dose: Not Given Documented by: Lisinopril (Zestril) 10 mg PO BID [facility] Last Admin: 03/25/19 07:59 Dose: 10 mg Documented by: Morphine Sulfate () 2 mg IV Q3H PRN PRN PRN Reason: Pain Score 6-10/10 Ondansetron HCl (Zofran) 4 mg IV Q8H PRN PRN PRN Reason: NAUSEA/VOMITING Polyethylene Glycol (Miralax) 17 gm PO DAILY [facility] Last Admin: 03/25/19 08:00 Dose: 17 gm Documented by: Prochlorperazine Edisylate (Compazine Iv) 5 mg IV Q4H PRN PRN PRN Reason: Breakthrough Nausea/Vomiting Senna/Docusate Sodium (Senokot-S, Diane-Colace) 2 tablet PO BID PRN PRN PRN Reason: Constipation Sodium Chloride () 10 - 40 ml IV UD PRN PRN Reason: SALINE FLUSH Last Admin: 03/25/19 11:04 Dose: 10 ml Documented by: Zolpidem Tartrate (Ambien (Generic)) 7.5 mg PO QHS PRN PRN PRN Reason: INSOMNIA STROKE Vital Signs/Narrative: Vital Signs Pulse Resp 03/25/19 15:24 93 18 Medical Necessity - Tobacco Use Smoking Status: Current every day smoker Tobacco Use: Cigarettes Assessment/Plan All Active Problems (Last Reviewed 05/24/17 @ 09:04 by Silke Billingsley) History of carpal tunnel surgery (Acute) The patient is a 58 year old M with history of coronary artery disease status post CABG, triple-vessel CVA, dyslipidemia and hypertension is being admitted through ER for progressive worsening of shortness of breath for about 2 weeks. He went to see his PCP and was given Z-Syed for presumed bronchitis but it did not get better and second time he was given prednisone but is still short of breath therefore went to [facility] ER. Patient positive of orthopnea for about 1 week, PND and dyspnea on exertion which progressed to dyspnea at rest. 1. Acute on chronic heart failure with preserved EF: Patient had patient had last cath in January 2017 reported as EF 60%. GREENBERG to mid LAD patent. Saphenous graft to circumflex is totally occluded. Saphenous vein graft to RPDA proximal LAD with 60 to 70% stenosis. At that time medical management was recommended. Last echo in 2012 shows EF 60% with mild concentric LVH. Patient is being admitted in PCU. Start on Lasix 40 mill grams IV twice daily for diuresis, monitor intake and output, electrolytes, kidney function and daily weight. On fluid restriction 1500 mL daily. Monitor cardiac enzymes. 2D echo ordered. 03/25/2019: Weight loss 2 pounds. 1900 mL urine output. Negative fluid balance 1300 ML. Echo reviewed. EF 45% with mild to moderate global hypokinesis. Normal RV size and systolic function. LA mildly enlarged. Normal right atrium. No pericardial effusion. The patient is diuresing well on Lasix 40 mg twice daily and continue. 2. Coronary artery disease status post CABG about 14 to 15 years ago: Patient follows Dr. orellana but has not seen for quite some time. 03/25: Mild elevation in troponin 0 0.06, 0.082 suggestive of demand ischemia. Seen by store mgr. Troponins are flat and intermittent. Recommend myocardial perfusion imaging. 3. Diabetes mellitus type 2, hypertension and dyslipidemia: Patient states he has borderline diabetes blood glucose is 223 in [facility] and [place] ED lab. A1c tomorrow a.m. Accu-Chek before meals and at bedtime and cover with Humalog sliding scale and titrate accordingly. 03/25: Glucose is controlled: Fasting 155, 123. A1c 6.1. 4. Hypertension: Patient blood pressure was high at 183/110 in ED. Currently 150/113: Seems mainly due to noncompliance. Patient home medication reconciled. On amlodipine 10mg, lisinopril 10 mg twice daily and hydralazine 10 mg IV every 4 hourly as needed for systolic blood pressure more than 170 mmHg. We will titrate the medications as per blood pressure and kidney function. 03/25: Blood pressure is improved 151/99. Admitting blood pressure was 189/125. Coreg increased to 12.5 mg twice daily. Hydralazine 25 mg twice daily added. 5. CKD stage III: Patient creatinine has been normal until January 2017 after that next creatinine was 1.7 in October 2018. It was 1.47 ON March 12, 2019 and then 1.66 today. Lisinopril dose decreased to 10 mg twice daily. Hold triamterene?HCTZ. Monitor intake and output, kidney function, electrolytes and evaluate lisinopril dose. 03/25: Creatinine is stable. BUN is 32, creatinine 1.53 6 Recent history of sigmoid diverticulitis/abscess status post partial colectomy in January 2017 7. Chronic smoker with nicotine dependence with CT finding of multiple pulmonary nodules: Patient started smoking in teenage, still smokes about 2 packs in 1 week. Denies use of alcohol or street drugs. CT chest showed multiple bilateral pulmonary nodules measuring up to 8 mm. Follow-up CT chest as an outpatient as per Fleischner Society recommendation D prophylaxis: On Lovenox 40 mg subcut daily. Laboratory Results 03/24/19 13:37: POC Glucose 104 03/24/19 16:18: POC Glucose 166 H 03/24/19 16:46: Troponin I 0.076 H 03/24/19 20:35: Troponin I 0.082 H 03/24/19 22:00: POC Glucose 111 H 03/25/19 05:06: WBC 8.7, RBC 5.33, Hgb 15.4, Hct 46.9, MCV 88.0, MCH 28.9, MCHC 32.8, RDW Std Deviation 43.4, RDW Coeff of Donna 13.4, Plt Count 282, MPV 10.9, Immature Gran % (Auto) 0.600, Neut % (Auto) 65.6, Lymph % (Auto) 22.3, [place] % (Auto) 9.4, Eos % (Auto) 1.3, Baso % (Auto) 0.8, Absolute Neuts (auto) 5.7, Absolute Lymphs (auto) 1.95, Nucleated RBC % 0 03/25/19 05:06: Sodium 138, Potassium 3.1 L, Chloride 100, Carbon Dioxide 29.0, Anion Gap 9, BUN 32 H, Creatinine 1.53 H, Estim Creat Clear Calc 53.27, Est GFR (MDRD) Af Amer 61, Est GFR (MDRD) Non-Af 50 L, BUN/Creatinine Ratio 20.9 H, Glucose 149 H, Calcium 8.4 L, Magnesium 1.7, Total Bilirubin 0.80, AST 32, ALT 68 H, Alkaline Phosphatase 42 L, Total Protein 6.4, Albumin 2.6 L, Globulin 3.8, Albumin/Globulin Ratio 0.7 L, TSH 0.87 03/25/19 05:06: Hemoglobin A1c 6.1 03/25/19 06:38: POC Glucose 155 H 03/25/19 11:48: POC Glucose 123 H 03/25/19 14:19: Phosphorus 5.9 H 03/25/19 14:19: Potassium 3.6 Code Visit Inpatient E&M: 91676 Subs Hosp L2
--- NOTE | 2019-03-25 17:12 | CHAPLAIN ---
Type of Pastoral Visit _x__ Initial Visit ___ Follow-up Visit ___ On-call Visit ___ General Patient Visit ___ Spiritual Assessment ___ Family Conference ___ Bereavement ___ Rapid Response ___ Code Blue ___ Other (describe below) Pastoral Care Referral From _x__ Patient ___ Family ___ Nurse ___ Physician ___ Dye Weigher ___ Manufacturers Service Representative ___ Other (describe below) Sacrament/Intervention _x__ Active listening ___ Anointing ___ Latter-Day ___ Bereavement ___ Communion ___ Daya exploration ___ ___ Life review _x__ Prayer ___ Reconciliation ___ Sacrament of Sick _x__ Supportive presence ___ Wedding ___ Other (describe below) Pastoral Comments
[2019-03-25 17:30] LABS: Bedside Glucose 141 mg/dL (70-110)
[2019-03-25] MEDS: hydrALAZINE 25 MG Tablet PO (18:16)
[2019-03-25] MEDS: Clopidogrel Bisulfate 300 MG Tablet PO (19:57)
[2019-03-25] MEDS: Carvedilol 12.5 MG Tablet PO (21:42)
[2019-03-25 21:56] LABS: Bedside Glucose 160 mg/dL (70-110)
[2019-03-25] MEDS: Zolpidem Tartrate 5 MG Tablet 7.5 MG PO (22:29)
[2019-03-26] VITALS (30 sets, daily range): BP systolic 118–150; BP diastolic 78–104; PULSE 54–103; RESP 12–24; TEMP 36.4–36.9; O2SAT 91–100; BMI 39.6
[2019-03-26] MEDS: Ipratropium/Albuterol Sulfate 3 ML AMPUL.NEB INHALATION ×5 (00:02→22:37)
[2019-03-26 05:38] LABS: Anion Gap 6 (5-15); BUN 46 mg/dL (7-18); BUN/Creat Ratio 23.6 RATIO (10-20); Calcium,Total 8.3 mg/dL (8.5-10.1); Chloride 103 mmol/L (98-107); Creatinine, Serum 1.95 mg/dL (0.70-1.30); EST Glomerular Filtration Rate 38 mL/min (>60); Est Glom Filt Rate - Afr Amer 46 mL/min (>60); Glucose 140 mg/dL (74-106); Magnesium 2.2 mg/dL (1.6-2.6); Potassium 3.4 mmol/L (3.5-5.1); Sodium Level 141 mmol/L (136-145)
--- NOTE | 2019-03-26 05:55 | EKG12_ITS ---
Test Reason : RUN OF V TACH Blood Pressure : / mmHG Vent. Rate : 092 BPM Atrial Rate : 092 BPM P-R Int : 132 ms QRS Dur : 100 ms QT Int : 388 ms P-R-T Axes : 070 080 228 degrees QTc Int : 479 ms Normal sinus rhythm ST & T wave abnormality, consider inferior ischemia ST & T wave abnormality, consider anterolateral ischemia Prolonged QT Abnormal ECG No previous ECGs available Confirmed by NEO ALANIS, COLE ([id number]), food expeditor JULES TURCIOS ([id number]) on 04/02/2019 1:04:11 PM Referred By: Kaz Casey Confirmed By:COLE LARSON MD
[2019-03-26] MEDS: Insulin Lispro 100 UNIT/ML INSULN.PEN SC ×3 (06:34→21:16)
[2019-03-26 06:45] LABS: Bedside Glucose 159 mg/dL (70-110)
[2019-03-26] MEDS: hydrALAZINE 25 MG Tablet PO ×2 (08:02→21:08)
[2019-03-26] MEDS: Fenofibrate 145 MG Tablet PO (08:02)
[2019-03-26] MEDS: Furosemide 40 MG Tablet PO (08:02)
[2019-03-26] MEDS: Aspirin 81 MG TAB.CHEW PO (08:02)
[2019-03-26] MEDS: amLODIPine 10 MG Tablet PO (08:03)
[2019-03-26] MEDS: Escitalopram Oxalate 10 MG Tablet PO (08:03)
[2019-03-26] MEDS: Carvedilol 12.5 MG Tablet PO ×2 (08:03→22:33)
[2019-03-26] MEDS: Lisinopril 10 MG Tablet PO ×2 (08:04→21:10)
[2019-03-26] MEDS: Clopidogrel Bisulfate 75 MG Tablet PO (08:05)
[2019-03-26] MEDS: Potassium Chloride 10mEq/100mL 10 MEQ/100 ML IV.SOLN. 100 MEQ IV BOLUS ×2 (08:56→10:10)
[2019-03-26] MEDS: 0.9% Saline Lock 10 ML Syringe IV ×2 (08:56→11:26)
[2019-03-26 11:30] LABS: Bedside Glucose 157 mg/dL (70-110)
--- NOTE | 2019-03-26 12:59 | NURSING ---
report called to veterinarian laboratory animal care
--- NOTE | 2019-03-26 14:21 | NURSING ---
report called to Yumiko AMAYA in ICU
[2019-03-26 14:30] LABS: ACT Activated Clotting Time 147 sec (74-137)
--- NOTE | 2019-03-26 14:46 | PN_ITS ---
Subjective: CC: Follow-up for heart failure and acute kidney injury on CKD stage III Patient shortness of breath, leg edema has improved. Patient sitting on the recliner. Creatinine went up to 1.95. CO2 32. K3.6. The patient had a heart catheter today. Vitals/I&O's: Vital Signs Temp Pulse Resp BP Pulse Ox 97.8 F 85 16 150/93 H 96 03/26/19 08:13 03/26/19 11:06 03/26/19 11:06 03/26/19 08:13 03/26/19 08:13 Oxygen Delivery Method Room Air Weight: 268 lb 1.314 oz Body Mass Index (BMI) 39.6 Intake and Output for Last 24 Hours 03/24/19 03/25/19 03/26/19 23:59 23:59 23:59 Intake Total 1200 / 1740 3161.75 / 3401.75 760 / 760 Output Total 600 / 600 2050 / 2350 750 / 750 Balance 600 / 1140 1111.75 / 1051.75 General: Alert, Oriented x3, Cooperative HEENT: Atraumatic, PERRLA, EOMI, Normocephalic Neck: Supple, No JVD, Negative Carotid Bruits Lungs: Clear to auscultation, Normal air movement Cardiovascular: Regular rate, Regular Rhythm, Normal S1, Normal S2, No murmurs, - - PVCs on ekg monitor. Patient had NSVT about 12.8 seconds in the morning today. Patient also had similar 22 beats of NSVT yesterday evening. Abdomen: Bowel Sounds Present, Soft, Non Tender, Non-Distended Extremities: Capillary Refill Less than 3 Seconds, Edema - Edema has improved. Skin: No rashes, No breakdown Musculoskeletal: No Tenderness to Palpation of Joints or Extremities Neurological: Cranial nerves II-XII grossly intact Psych/Mental Status: Normal Affect, Appropriate Laboratory Results 03/25/19 14:19: Phosphorus 5.9 H 03/25/19 14:19: Potassium 3.6 03/25/19 17:17: POC Glucose 141 H 03/25/19 21:45: POC Glucose 160 H 03/26/19 05:05: Sodium 141, Potassium 3.4 L, Chloride 103, Carbon Dioxide 32.0, Anion Gap 6, BUN 46 H, Creatinine 1.95 H, Estim Creat Clear Calc 41.80, Est GFR (MDRD) Af Amer 46 L, Est GFR (MDRD) Non-Af 38 L, BUN/Creatinine Ratio 23.6 H, Glucose 140 H, Calcium 8.3 L, Magnesium 2.2 03/26/19 06:32: POC Glucose 159 H 03/26/19 11:22: POC Glucose 157 H 03/26/19 14:19: Activated Clotting Time 147 H Current Medications Acetaminophen (Tylenol) 650 mg PO Q6H PRN PRN PRN Reason: Pain Score 1-3/Temp > 100.7 F Albuterol/Ipratropium (Duoneb) 3 ml INHALATION Q4H.RT [facility] Last Admin: 03/26/19 11:06 Dose: 3 ml Documented by: Amlodipine Besylate (Norvasc) 10 mg PO DAILY [facility] Last Admin: 03/26/19 08:03 Dose: 10 mg Documented by: Aspirin (Aspirin, Baby) 81 mg PO DAILY@0800 [facility] Last Admin: 03/26/19 08:02 Dose: 81 mg Documented by: Carvedilol (Coreg) 12.5 mg PO BID [facility] Last Admin: 03/26/19 08:03 Dose: 12.5 mg Documented by: Dextrose (D50w Syringe) 0 gm IV X1 PRN; Protocol PRN Reason: Hypoglycemia Enoxaparin Sodium (Lovenox) 40 mg SC DAILY [facility] Last Admin: 03/26/19 07:46 Dose: Not Given Documented by: Escitalopram Oxalate (Lexapro) 10 mg PO DAILY [facility] Last Admin: 03/26/19 08:03 Dose: 10 mg Documented by: [facility]) [facility] Last Admin: 03/26/19 08:02 Dose: 145 mg Documented by: Glucagon () 1 mg IM .X1 PRN PRN Reason: Hypoglycemia Guaifenesin (Robitussin) 20 ml PO Q4H PRN PRN PRN Reason: COUGH Hydralazine HCl (Apresoline Iv) 10 mg IV Q4H PRN PRN PRN Reason: sbp>170 MMHG Hydralazine HCl (Apresoline) 25 mg PO BID [facility] Last Admin: 03/26/19 08:02 Dose: 25 mg Documented by: Sodium Chloride () 250 mls @ 15 mls/hr IV .[id number] PRN PRN Reason: Saline Flush Last Infusion: 03/25/19 18:22 Dose: 0 mls/hr Documented by: Sodium Chloride () 1,000 mls @ 0 mls/hr IV .Q0M [facility] Insulin Glargine (Lantus (Bkc)) 5 units SC DINNER [facility] Last Admin: 03/25/19 18:16 Dose: 5 u Documented by: Insulin Human Lispro (Humalog Kwikpen (Bk)) 0 unit SC ACHS [facility]; Protocol Last Admin: 03/26/19 11:24 Dose: 2 u Documented by: Lisinopril (Zestril) 10 mg PO BID [facility] Last Admin: 03/26/19 08:04 Dose: 10 mg Documented by: Morphine Sulfate () 2 mg IV Q3H PRN PRN PRN Reason: Pain Score 6-10/10 Ondansetron HCl (Zofran) 4 mg IV Q8H PRN PRN PRN Reason: NAUSEA/VOMITING Polyethylene Glycol (Miralax) 17 gm PO DAILY [facility] Last Admin: 03/26/19 08:03 Dose: Not Given Documented by: Prochlorperazine Edisylate (Compazine Iv) 5 mg IV Q4H PRN PRN PRN Reason: Breakthrough Nausea/Vomiting Senna/Docusate Sodium (Senokot-S, Diane-Colace) 2 tablet PO BID PRN PRN PRN Reason: Constipation Sodium Chloride () 10 - 40 ml IV UD PRN PRN Reason: SALINE FLUSH Last Admin: 03/26/19 11:26 Dose: 10 ml Documented by: Zolpidem Tartrate (Ambien (Generic)) 7.5 mg PO QHS PRN PRN PRN Reason: INSOMNIA Last Admin: 03/25/19 22:29 Dose: 7.5 mg Documented by: STROKE Vital Signs/Narrative: Vital Signs Pulse Resp 03/26/19 11:06 85 16 03/26/19 11:00 87 Medical Necessity - Tobacco Use Smoking Status: Current every day smoker Tobacco Use: Cigarettes Assessment/Plan All Active Problems (Last Reviewed 05/24/17 @ 09:04 by Silke Billingsley) History of carpal tunnel surgery (Acute) The patient is a 58 year old M with history of coronary artery disease status post CABG, triple-vessel CVA, dyslipidemia and hypertension is being admitted through ER for progressive worsening of shortness of breath for about 2 weeks. He went to see his PCP and was given Z-Syed for presumed bronchitis but it did not get better and second time he was given prednisone but is still short of breath therefore went to [facility] ER. Patient positive of orthopnea for about 1 week, PND and dyspnea on exertion which progressed to dyspnea at rest. 1. Acute on chronic heart failure with preserved EF: Patient had patient had last cath in January 2017 reported as EF 60%. GREENBERG to mid LAD patent. Saphenous graft to circumflex is totally occluded. Saphenous vein graft to RPDA proximal LAD with 60 to 70% stenosis. At that time medical management was recom mended. Last echo in 2012 shows EF 60% with mild concentric LVH. Patient is being admitted in PCU. Start on Lasix 40 mill grams IV twice daily for diuresis, monitor intake and output, electrolytes, kidney function and daily weight. On fluid restriction 1500 mL daily. Monitor cardiac enzymes. 2D echo ordered. 03/25/2019: Weight loss 2 pounds. 1900 mL urine output. Negative fluid balance 1300 ML. Echo reviewed. EF 45% with mild to moderate global hypokinesis. Normal RV size and systolic function. LA mildly enlarged. Normal right atrium. No pericardial effusion. The patient is diuresing well on Lasix 40 mg twice daily and continue. 03/26: Negative fluid balance total 1700. Patient weight is 168 pound therefore no change from weight on admission; it seems incorrect weight charting. Lasix is held as patient got cardiac cath. Dr. Montano called me. Triple-vessel coronary artery disease of 11, LAD, circumflex and RCA. LVEF 25%. Successful PTCA/DC of mid SVG to RCA. Patient is being transferred to ICU 2. Coronary artery disease status post CABG about 14 to 15 years ago: Patient follows Dr. orellana but has not seen for quite some time. 03/25: Mild elevation in troponin 0 0.06, 0.082 suggestive of demand ischemia. Seen by furnace mechanic helper. Troponins are flat and intermittent. 03/26: Patient went for heart cath as mentioned above. Had PCI 3. Diabetes mellitus type 2, hypertension and dyslipidemia: Patient states he has borderline diabetes blood glucose is 223 in [facility] and [place] ED lab. A1c tomorrow a.m. Accu-Chek before meals and at bedtime and cover with Humalog sliding scale and titrate accordingly. 03/25: Glucose is controlled: Fasting 155, 123. A1c 6.1. 4. Hypertension: Patient blood pressure was high at 183/110 in ED. Currently 150/113: Seems mainly due to noncompliance. Patient home medication reconciled. On amlodipine 10mg, lisinopril 10 mg twice daily and hydralazine 10 mg IV every 4 hourly as needed for systolic blood pressure more than 170 mmHg. We will titrate the medications as per blood pressure and kidney function. 03/25: Blood pressure is improved 151/99. Admitting blood pressure was 189/125. Coreg increased to 12.5 mg twice daily. Hydralazine 25 mg twice daily added. 5. CKD stage III: Patient creatinine has been normal until January 2017 after that next creatinine was 1.7 in October 2018. It was 1.47 ON March 12, 2019 and then 1.66 today. Lisinopril dose decreased to 10 mg twice daily. Hold triamterene?HCTZ. Monitor intake and output, kidney function, electrolytes and evaluate lisinopril dose. 03/25: Creatinine is stable. BUN is 32, creatinine 1.53 03/26: Creatinine went up from 1.53-1.95. BUN 32-46. Lasix held in the morning today. Follow BUN, creatinine and electrolytes. Monitor intake and output. 6 Recent history of sigmoid diverticulitis/abscess status post partial colectomy in January 2017 7. Chronic smoker with nicotine dependence with CT finding of multiple pulmonary nodules: Patient started smoking in teenage, still smokes about 2 packs in 1 week. Denies use of alcohol or street drugs. CT chest showed multiple bilateral pulmonary nodules measuring up to 8 mm. Follow-up CT chest as an outpatient as per Fleischner Society recommendation D prophylaxis: On Lovenox 40 mg subcut daily. Laboratory Results 03/25/19 14:19: Phosphorus 5.9 H 03/25/19 17:17: POC Glucose 141 H 03/25/19 21:45: POC Glucose 160 H 03/26/19 05:05: Sodium 141, Potassium 3.4 L, Chloride 103, Carbon Dioxide 32.0, Anion Gap 6, BUN 46 H, Creatinine 1.95 H, Estim Creat Clear Calc 41.80, Est GFR (MDRD) Af Amer 46 L, Est GFR (MDRD) Non-Af 38 L, BUN/Creatinine Ratio 23.6 H, Glucose 140 H, Calcium 8.3 L, Magnesium 2.2 03/26/19 06:32: POC Glucose 159 H 03/26/19 11:22: POC Glucose 157 H 03/26/19 14:19: Activated Clotting Time 147 H Code Visit Inpatient E&M: 56394 Subs Hosp L3
--- NOTE | 2019-03-26 14:47 | EKG12_ITS ---
Test Reason : AM EKG Blood Pressure : / mmHG Vent. Rate : 070 BPM Atrial Rate : 070 BPM P-R Int : 134 ms QRS Dur : 102 ms QT Int : 466 ms P-R-T Axes : 072 078 191 degrees QTc Int : 503 ms Normal sinus rhythm with sinus arrhythmia ST & T wave abnormality, consider inferolateral ischemia Prolonged QT Abnormal ECG When compared with ECG of 26-MAR-2019 06:15, MANUAL COMPARISON REQUIRED, DATA IS UNCONFIRMED Confirmed by NEO ALANIS, COLE ([id number]), visual effects editor SANTI JIMÉNEZ ([id number]) on 03/31/2019 10:12:46 AM Referred By: Kaz Casey Confirmed By:COLE LARSON MD
--- NOTE | 2019-03-26 14:49 | CL.I_ITS ---
Patient Name: JOSHUA CARR Study Date: 03/26/2019 Performing: Tello Montano MD Ht: 69 inches 175 cm : 1960 Wt: 269.3 lbs 122 kg Age: 58 Gender: male BSA: 2.34 PROCEDURE(S) PERFORMED [id number]-ERH/COR/LV/CABG [id number]-ACT AND/OR PTCA, SINGLE GRAFT CLINICAL PROFILE AND CO-MORBIDITIES Patient presents with NSTEMI for urgent cardiac cath Indications: ACS <= 24 hrs, Stable Known CAD, LV Dysfunction Heart Failure: NYHA Class: 2, Newly Diagnosed: No, Heart Failure Type: Systolic, Heart Failure Ty pe: Diastolic Stress/Imaging Stress/Image Study Performed: No Angina Classification Anginal Classification w/in 2 Weeks: CCS III CAD Presentations: Unstable angina. Non-STEMI. Symptom onset Date/Time: 03/25/2019 Time Not Avail able Other: Dyspnea on exertion Comorbidities/Risk Factors: Hypertension Dyslipidemia Prior CHF Prior CABG CONCLUSIONS Triple vessel CAD of the LM, LAD, LCX and RCA Global LV systolic dysfunction- Severe LVEF: by LV gram 25 % Elevated Left Ventricular End Diastolic Pressure Successful PTCA/ABBI of MID SVG to RCA with filter wire assistance, utilizing a 4.0 x 16 Promus Synerg y, post dilated with a 4.0 x 8 NC Balloon; 85%-->0%, no dissection. Successful Mynx Control closure of RFA. RECOMMENDATIONS Referred for immediate PCI Highly recommend quitting all tobacco products Follow up with primary plant operations coordinator Risk factor modification ASA Indefinitley Plavix for at least 12 months Routine post interventional care Refer for Outpatient Cardiac Rehab Manual sheath removal per protocol Follow up with Dr. Marquez Consider elective PCI to chilkoot LAD via GREENBERG to LAD vs stress testing to eval for ischemia. D/w Dr Marquez prior to PCI. D/w Dr Casey post procedure. DESCRIPTION OF PROCEDURE The patient arrived to the procedure lab. The risks and benefits of the procedure as well as a full d escription of our services here and lack of surgical backup were fully explained to the patient and/o r their significant other prior to the catheterization. The Timeout was completed, verifying the lindsay ect patient and procedure. The patient's procedural site was prepped and draped in the usual fashion. Local anesthetic was given subcutaneously to right groin region with Lidocaine 2%. Using a modified Seldinger technique, arterial access was obtained via the right femoral artery, a 4Fr sheath was inse rted. Left Coronary Artery selective angiography was performed in multiple views using a 4 Fr. JL5 c atheter. Right Coronary Artery selective angiography was then performed in multiple views using a 4 F r. 3DRC catheter. Saphenous Vein graft to the Circumflex selective angiography was performed in multi ple views using a 4 Fr. 3DRC catheter. Left internal mammary artery graft to the LAD selective angiography was performed in multiple views using a 4 Fr. 3DRC catheter. Saphenous Vein gra ft to the RPDA selective angiography was performed in multiple views using a 4 Fr. AR MOD 2 catheter. Left Ventriculography was performed in HAMMONDS projection using a 4 Fr. Pigtail catheter. LV to AO pullb ack pressures were then recordedThe images were reviewed and options discussed. A decision was then m erin to proceed with an Intervention, IVUS or other adjunct procedure. Arterial sheath was exchanged for a 6 Fr Sheath. MP1 Guide catheter was inserted and engaged into the SVG to the Rt PDA. Angiogram performed. BMW Guide wire was advanced to the Right PDA SVG. 2.25-3 .5 FIlter wire Guide wire was advanced to the Right PDA. 2x12 Emerge Balloon catheter was advanced ac ross lesion in the posterior descending SVG, distal. PTCA balloon inflated at 8 atms for 8 secs. Emilee ogram performed post balloon dilatation. 4x16 Synergy Drug Eluting stent was advanced across the lesi on in the graft to the Rt PDA. Angiogram performed pre stent deployment. Angiogram performed post chema nt deployment. 4x8 NC Emerge Balloon catheter was inserted post stent. Angiogram performed post ballo on dilatation. Angiogram performed. Contrast was injected through the sheath and the Right Iliac and Femoral artery were assessed for possible closure device. The arterial sheath was pulled and a Mynx closure device was deployed for hemostasis CORONARY ANGIOGRAPHY DOMINANCE: Right Dominant LEFT HEART ASSESSMENT Left Ventricular Ejection Fraction: by LV Gram 25 % Depressed Left Ventricular systolic function LVEDP: 35 mmHg Elevated Left Ventricular End Diastolic Pressure Inferior Mid Hypokinesis - Severe. Anterior Hypokinesis - Moderate LEFT MAIN: 30 % Stenosis LEFT ANTERIOR DESCENDING ARTERY: PROX LAD: 85 % Stenosis, Moderate calcification MID LAD: 95 % Stenosis, is occluded DIAGONAL 1: Ostial - 75 % Stenosis CIRCUMFLEX ARTERY: PROX CIRC: is occluded RIGHT CORONARY ARTERY: MID RCA: is occluded GRAFTS: Composite GREENBERG and VIBHA graft to the LAD and DIAG is patent, with 75-80% diffuse distal nativ e LAD disease noted. Saphenous Vein graft to the 1st OM is totally occluded Saphenous Vein graft to the RCA has a mid lesion of 85 % INTERVENTION INFORMATION LESION SITE: Vein > to Rt PDA Segment Number: 4-Right posterior descending artery segment - rPDA , L esion Location: Distal Lesion Complexity: High/C, lesion at bifurcation: No, thrombus present: No, lesion length: 16 mm, cul prit lesion: Yes Pre Stenosis: 85 % Pre intervention ANGEL flow: 3 PROCEDURE: Drug Eluting Stent with pre and post dilatation Post Stenosis: 0 % Post intervention ANGEL flow: 3 Lesion Devices: Luther Sci Small Vessel 2.25-3.5 Filter Wire 190cm Sendiotronic 6 Fr MP1 100cm Guide Catheter Infante .014 BMW [place] Straight 190cm Luther Sci EMERGE MR 2.00x12 BALLOON Luther Sci Synergy MR ABBI 4.00x16 Luther Sci NC EMERGE MR 4.00x08 BALLOON COMPLICATIONS No Complications PROCEDURE MEDICATIONS Oxygen: 2 L/min via nasal cannula Heparin 6000 unit(s) IV 03/26/2019 13:49:56 Nitro 200 mcg IC 03/26/2019 13:54:44 SUMMARY OF HEMODYNAMIC DATA Time AIR REST AO 116/82 (96) SA 13:24:54 LV 135/11, 38 13:37:13 LV 135/8, 35 13:37:20 LVp 141/8, 37 13:38:26 AOp 139/91 (110) 13:38:31 Signed By Tello Montano MD On 03/26/2019 14:49:03 Signed By Tello Montano MD On 03/26/2019 14:48:38 Tello Montano MD
--- NOTE | 2019-03-26 15:12 | CPS ---
PATIENT DEFFERRED AERSOSOL TREATMENT AT TIME OF VISIT.
--- NOTE | 2019-03-26 15:18 | CRPHASE1 ---
Patient Communication PHII Cardiac Rehab Discussed with Patient:: Yes Guide to Cardiac Rehab Given to Patient:: Yes Cardiac Rehab Facility Choice List Given to Patient:: Yes - [facility] Choice Program [facility] CR PHII:: Communication Given to CR Brand Communications Manager:: Tello Montano Sessions:: 36 sessions - 3 days/wk, 12 weeks Risk Factors/Lifestyle Smoking Status: Current every day smoker Packs Smoked per Day: 1 Hx Hypertension: Yes Hx Diabetes Mellitus Type 1: No Hx Diabetes Mellitus Type 2: No Hx Dyslipidemia: Yes Hx Obesity: Yes Height: 1.75 m Weight:: 121.6 kg BMI: 39.6 Stress: Long-standing Caffeine: Yes Substance Abuse: No Risk Factor for Sedentary Lifestyle: Moderate Risk Family History: High Cholesterol, Heart Disease, Hypertension Past Cardiac Illness: Coronary Artery Bypass Graft Laboratory Values: Cardiac Rehab Phase I Labs Hemoglobin A1c 6.1 % (4.2-6.3) 03/25/19 05:06 Phase I Education Given On:: [place] Issues Affecting Care:: None Knowledge of Condition:: Yes Hospital Course Miscellaneous:: CHF HISTORY HYPERTENSION Grafts:: 2005 Medical/Surgical History Angina:: Yes Cardiomyopathy:: Yes COPD:: Yes Hypertension:: Yes Dyslipidemia:: Yes Discharge/Home/Social Eval Discharge Disposition: Home Marital Status: Cardiac Rehabilitation Info Cardiac Rehabilitation Program Information: Cardiac Rehabilitation is important for patients like you who are recovering from a heart problem. Cardiac rehabilitation programs are recognized as integral to the continued care of the patient with coronary heart disease. The cardiac rehabilitation program is designed to optimize a patient's physical, psychological, and social functioning. Health clinical care leader work in cardiac rehabilitation programs and assist you with getting the treatments you need to get stronger and healthier - like exercise, healthy eating habits, and medications. Cardiac rehabilitation has been show to help people with heart problems live longer and have better life enjoyment than people who do not go to cardiac rehabilitation. Please contact the Cardiac Rehabilitation Program at [facility] at in two weeks if you have not heard from them.
--- NOTE | 2019-03-26 15:22 | CRPH1.INSTRU ---
General Education CAD and cardiac anatomy and function:: Patient communicates acknowledgment Explanation of diagnoses and procedures:: Patient communicates acknowledgment, Not instructed Sign/Symptoms of IL:: Not instructed Antiplatelet therapy: Not instructed Proper use of NTG-SL: Not instructed Emergency procedures and activation of EMS: Not instructed Compliance of all prescribed medications: Not instructed Smoking Patient Nicotine/Smoking Risk Factors Are:: Cigarettes Recommendations Include:: Smoking cessation strategies/Smoking packet Nicotine/Smoking Response Code:: Patient communicates acknowledgment, Family communicates acknowledgment Dyslipidemia Patient Dyslipidemia Risk Factors Are:: Total Cholesterol - 215, Triglycerides - 475, HDL - 26 Overweight/Obesity Patient Overweight/Obesity Risk Factors Are:: Obesity - > or = 30 Overweight/Obesity:: Patient communicates acknowledgment Hypertension Hypertension:: Patient communicates acknowledgment Heart Disease Patient Heart Disease Risk Factors Are:: Family history of heart disease < 65 years old, Previous cardiac event Heart Disease Response Code:: Patient communicates acknowledgment Diabetes Patient Diabetes Risk Factors Are:: No documented hx of diabetes Metabolic Syndrome Patient Metabolic Syndrome Risk Factors Are [3 of 5]:: High triglyceride >150, Hypertension, Low HDL <40 [male] or < 50 [female] Metabolic Syndrome Response Code:: Patient communicates acknowledgment Sedentary Sedentary Response Code:: Patient communicates acknowledgment Stress Patient Stress Risk Factors Are:: Patient denies stress as a risk factor Stress Response Code:: Patient communicates acknowledgment
[2019-03-26] MEDS: 0.9% Normal Saline 1,000 ML 150 ML IV (15:45)
[2019-03-26 16:20] LABS: Bedside Glucose 97 mg/dL (70-110)
[2019-03-26] MEDS: Atorvastatin Calcium 80 MG Tablet PO (21:07)
[2019-03-26 21:25] LABS: Bedside Glucose 152 mg/dL (70-110)
[2019-03-26] MEDS: Zolpidem Tartrate 5 MG Tablet 7.5 MG PO (22:33)
[2019-03-27] VITALS (19 sets, daily range): BP systolic 96–160; BP diastolic 67–98; PULSE 66–87; RESP 12–23; TEMP 36.4–36.9; O2SAT 93–97
[2019-03-27 04:12] LABS: Hematocrit 43.1 % (40-54); Hemoglobin 13.9 g/dL (13.0-16.5); Mean Corp Hgb Conc 32.3 g/dL (32-36); Mean Corpuscular Hgb 28.7 pg (27.0-32.0); Mean Platelet Vol. 10.8 fl (6.2-12.0); Platelet Count 245 K/mm3 (150-450); RBC Distribution Width CV 13.3 % (11.6-14.6); RBC Distribution Width SD 43.4 fl (35.1-43.9); Red Blood Count 4.84 M/mm3 (4.6-6.2); White Blood Count 7.9 K/mm3 (4.4-11.0)
[2019-03-27 04:30] LABS: ALB/GLOB Ratio 0.8 RATIO (0.9-2.4); AST(SGOT) 17 U/L (15-37); Alanine Aminotransfer ALT/SGPT 44 U/L (16-61); Albumin, Serum 2.6 g/dL (3.2-5.0); Alkaline Phosphatase 36 U/L (45-117); Anion Gap 9 (5-15); BUN 41 mg/dL (7-18); BUN/Creat Ratio 21.8 RATIO (10-20); Calcium,Total 8.2 mg/dL (8.5-10.1); Chloride 103 mmol/L (98-107); Creatinine, Serum 1.88 mg/dL (0.70-1.30); EST Glomerular Filtration Rate 39 mL/min (>60); Est Glom Filt Rate - Afr Amer 48 mL/min (>60); Estimated Creatinine Clearance 41.94 ml/min; Globulin 3.3 g/dL (2.2-4.2); Glucose 126 mg/dL (74-106); Potassium 3.6 mmol/L (3.5-5.1); Protein, Total 5.9 g/dL (6.4-8.2); Sodium Level 141 mmol/L (136-145)
[2019-03-27] MEDS: Ipratropium/Albuterol Sulfate 3 ML AMPUL.NEB INHALATION ×2 (06:31→11:16)
--- NOTE | 2019-03-27 08:14 | PCM.DC ---
- Discharge Diagnoses Current Active Problems: Current Active and Chronic Problems (Last Updated 03/26/19 @ 17:04 by Amanda Woods) NSTEMI (non-ST elevated myocardial infarction) (Chronic 03/24/19) Ischemic cardiomyopathy (Chronic) Atherosclerosis of coronary artery of [place] heart without angina pectoris (Chronic) Successful PTCA/ABBI of MID SVG to RCA with filter wire assistance, utilizing a 4.0 x 16 Promus Synergy Stented coronary artery (Chronic 03/26/19) Successful PTCA/ABBI of MID SVG to RCA with filter wire assistance, utilizing a 4.0 x 16 Promus Synergy. EF 25%. CHF (congestive heart failure) (Chronic) You will use the following diet at home:: Calorie/Carbohydrate Controlled (specify 1200, 1400, etc) - 1600 ADA diet, Cardiac Your food should be the consistency of: Regular Discharge Activity: May Not Drive Weight Bearing Status: Weight bearing as tolerated Call your doctor if you observe: Fever of 101 or Higher, Inability to urinate, Inability to have a bowel movement, Shortness of breath, Dizziness, Fainting spells, Swelling in the ankles, Chest pain, Increased palpitations (irregular heartbeat), Uncontrolled pain Allergies/Adverse Reactions: Allergies codeine Allergy (Verified 03/24/19 11:22) Rash Medications to take at Discharge Fenofibrate 160 mg PO DAILY 10/06/16 Lisinopril [Zestril] 20 mg PO BID 10/06/16 Potassium Chloride [Klor-Con 10] 20 meq PO BID 10/06/16 Triamterene/Hydrochlorothiazid [Dyazide 37.5-25 Capsule] 1 ea PO DAILY 10/06/16 Aspirin 81 mg PO DAILY 01/05/17 Amlodipine Besylate [Norvasc] 10 mg PO DAILY #30 tab 03/27/19 Aspirin E.C. [Ecotrin] 81 mg PO DAILY@0800 #30 tab 03/27/19 Atorvastatin Calcium 40 mg PO QHS #30 tab 03/27/19 Carvedilol [Coreg (Beta Ivone)] 12.5 mg PO BID #60 tab 03/27/19 Clopidogrel Bisulfate [Plavix] 75 mg PO DAILY #30 tab 03/27/19 Escitalopram Oxalate [Lexapro] 10 tab PO DAILY #30 tab 03/27/19 Lisinopril [Zestril] 10 mg PO BID #60 tab 03/27/19 Nitroglycerin (INPATIENT USE) [Nitrostat] 0.4 mg SUBLINGUAL Q5M PRN #30 tab.subl 03/27/19 Potassium Chloride [K-Dur] 20 meq PO BID #60 tab 03/27/19 Zolpidem Tartrate [Ambien] 5 mg PO QHS PRN PRN #30 tablet 03/27/19 hydrALAZINE [Apresoline] 25 mg PO BID #60 tab 03/27/19 The following prescriptions were given: Zolpidem Tartrate [Ambien] 5 mg PO QHS PRN PRN #30 tablet PRN Reason: Insomnia Transmission Status: Pending to [facility]30 hydrALAZINE [Apresoline] 25 mg PO BID #60 tab Atorvastatin Calcium 40 mg PO QHS #30 tab Carvedilol [Coreg (Beta Ivone)] 12.5 mg PO BID #60 tab Transmission Status: Sent to [facility] #30 Aspirin E.C. [Ecotrin] 81 mg PO DAILY@0800 #30 tab Transmission Status: Sent to [facility] #30 Potassium Chloride [K-Dur] 20 meq PO BID #60 tab Transmission Status: Sent to [facility]30 Escitalopram Oxalate [Lexapro] 10 tab PO DAILY #30 tab Transmission Status: Sent to [facility]30 Nitroglycerin (INPATIENT USE) [Nitrostat] 0.4 mg SUBLINGUAL Q5M PRN #30 tab.subl PRN Reason: Cardiac/Chest Pain Transmission Status: Sent to [facility]30 Amlodipine Besylate [Norvasc] 10 mg PO DAILY #30 tab Transmission Status: Sent to [facility]30 Clopidogrel Bisulfate [Plavix] 75 mg PO DAILY #30 tab Transmission Status: Sent to [facility]30 Lisinopril [Zestril] 10 mg PO BID #60 tab Transmission Status: Sent to [facility]30 Orders to be completed after discharge: Phase II, Outpatient Cardiac Rehab Location: None Selected Primary Care Physician: Anjel Li MD [Primary Care Provider] - Please follow up with your Primary Care Physician in: in 1-2 week Test Results: Test results from this visit will be discussed in further detail at your follow-up appointment, if applicable. Please Follow Up With: Adi Marquez MD When: as scheduled Please Follow Up With: Tomas Alas MD When: CKD stage 3 on diuretics
--- NOTE | 2019-03-27 08:23 | PCM.DC.SUM ---
Discharge Date and Diagnosis Date of Admission: 03/24/19 Date of Discharge: 03/27/19 - Secondary Discharge Diagnosis Chronic Problems (Last Updated 03/26/19 @ 17:04 by Amanda Woods) NSTEMI (non-ST elevated myocardial infarction) (Chronic 03/24/19) Ischemic cardiomyopathy (Chronic) Atherosclerosis of coronary artery of [place] heart without angina pectoris (Chronic) Successful PTCA/ABBI of MID SVG to RCA with filter wire assistance, utilizing a 4.0 x 16 Promus Synergy Stented coronary artery (Chronic 03/26/19) Successful PTCA/ABBI of MID SVG to RCA with filter wire assistance, utilizing a 4.0 x 16 Promus Synergy. EF 25%. CHF (congestive heart failure) (Chronic) Status post laparoscopic-assisted sigmoidectomy (Chronic) 01/18/17 S/P partial colectomy (Chronic) 01/2017 S/P left knee surgery (Chronic) Benign essential hypertension (Chronic) Obesity (Chronic) Tobacco user (Chronic) CAD (coronary artery disease) (Chronic) Hospital Course and Treatment Operations: - - Laparoscopic sigmoid colectomy on 01/18/17 Summary of Care Provided: [] The patient is a 58 year old M with history of coronary artery disease status post CABG, triple-vessel CVA, dyslipidemia and hypertension is being admitted through ER for progressive worsening of shortness of breath for about 2 weeks. He went to see his PCP and was given Z-Ysed for presumed bronchitis but it did not get better and second time he was given prednisone but is still short of breath therefore went to [facility] ER. Patient positive of orthopnea for about 1 week, PND and dyspnea on exertion which progressed to dyspnea at rest. 1. Acute on chronic heart failure with preserved EF: Patient had patient had last cath in January 2017 reported as EF 60%. [place] to mid LAD patent. Saphenous graft to circumflex is totally occluded. Saphenous vein graft to RPDA proximal LAD with 60 to 70% stenosis. At that time medical management was recommended. Last echo in 2012 shows EF 60% with mild concentric LVH. Patient is being admitted in PCU. Start on Lasix 40 mill grams IV twice daily for diuresis, monitor intake and output, electrolytes, kidney function and daily weight. On fluid restriction 1500 mL daily. Monitor cardiac enzymes. 2D echo ordered. 03/25/2019: Weight loss 2 pounds. 1900 mL urine output. Negative fluid balance 1300 ML. Echo reviewed. EF 45% with mild to moderate global hypokinesis. Normal RV size and systolic function. LA mildly enlarged. Normal right atrium. No pericardial effusion. The patient is diuresing well on Lasix 40 mg twice daily and continue. 03/26: Negative fluid balance total 1700. Patient weight is 168 pound therefore no change from weight on admission; it seems incorrect weight charting. Lasix is held as patient got cardiac cath. Patient is being transferred to ICU 03/27: Patient is well diuresed. Lasix administered out. Net fluid balance about 2 L. Patient can resume Lasix 40 mg daily tomorrow a.m. about 48 hours from cardiac cath. BUN/creatinine is stable after cardiac cath, today 41/1.188. 2. Coronary artery disease status post CABG about 14 to 15 years ago: Patient follows Dr. orellana but has not seen for quite some time. 03/25: Mild elevation in troponin 0 0.06, 0.082 suggestive of demand ischemia. Seen by care technician. Troponins are flat and intermittent. 03/26: Patient went for heart cath as mentioned above. 03/27: Dr. Montano called me. Cardiac cath findings on 03/26: Triple-vessel coronary artery disease of 11, LAD, circumflex and RCA. LVEF 25%. Successful PTCA/DC of mid SVG to RCA. Lipid profile triglyceride 279, LDL 106, HDL 28. On atorvastatin 80 mg daily. Discontinue fenofibrate patient was not taking before admission 3. Diabetes mellitus type 2, hypertension and dyslipidemia: Patient states he has borderline diabetes blood glucose is 223 in [facility] and [place] ED lab. A1c tomorrow a.m. Accu-Chek before meals and at bedtime and cover with Humalog sliding scale and titrate accordingly. 03/25: Glucose is controlled: Fasting 155, 123. A1c 6.1. 4. Hypertension: Patient blood pressure was high at 183/110 in ED. Currently 150/113: Seems mainly due to noncompliance. Patient home medication reconciled. On amlodipine 10mg, lisinopril 10 mg twice daily and hydralazine 10 mg IV every 4 hourly as needed for systolic blood pressure more than 170 mmHg. We will titrate the medications as per blood pressure and kidney function. 03/25: Blood pressure is improved 151/99. Admitting blood pressure was 189/125. Coreg increased to 12.5 mg twice daily. Hydralazine 25 mg twice daily added. 5. CKD stage III: Patient creatinine has been normal until January 2017 after that next creatinine was 1.7 in October 2018. It was 1.47 ON March 12, 2019 and then 1.66 today. Lisinopril dose decreased to 10 mg twice daily. Hold triamterene?HCTZ. Monitor intake and output, kidney function, electrolytes and evaluate lisinopril dose. 03/25: Creatinine is stable. BUN is 32, creatinine 1.53 03/26: Creatinine went up from 1.53-1.95. BUN 32-46. Lasix held in the morning today. Follow BUN, creatinine and electrolytes. Monitor intake and output. 6 Recent history of sigmoid diverticulitis/abscess status post partial colectomy in January 2017 7. Chronic smoker with nicotine dependence with CT finding of multiple pulmonary nodules: Patient started smoking in teenage, still smokes about 2 packs in 1 week. Denies use of alcohol or street drugs. CT chest showed multiple bilateral pulmonary nodules measuring up to 8 mm. Follow-up CT chest as an outpatient as per Fleischner Society recommendation VTE prophylaxis: On Lovenox hold after cardiac cath. Discharge medication reconciliation done. Discharge follow-up instructions completed. Discharge process discussed with the patient and all questions were answered to patient's satisfaction. Patient was prescribed fenofibrate and triamterene/HCTZ but was not taking because of noncompliance. Prescription was given for aspirin, Plavix, amlodipine, lisinopril, hydralazine potassium for supplement along with Lasix 40 mg daily, Coreg and atorvastatin. Discontinue fenofibrate. Ambien 5 mg nightly as needed as patient has difficulty falling sleep. Total time spent, exact 35 minutes on discharge meds reconciliation, examination, review of imaging and blood test and discussion with the patient on follow-up instructions. Subjective: Seen and examined. Patient denies any acute events overnight. Blood pressure normotensive. Heart rate is controlled normal sinus rhythm with frequent PVCs. Objective: General: Alert, Oriented x3, Cooperative HEENT: Atraumatic, PERRLA, EOMI, Normocephalic Neck: Supple, No JVD, Negative Carotid Bruits Lungs: Clear to auscultation, Normal air movement Cardiovascular: Regular rate, Regular Rhythm, Normal S1, Normal S2, No murmurs, frequent PVCs. Infrequent short runs of NSVT Abdomen: Bowel Sounds Present, Soft, Non Tender, Non-Distended Extremities: Capillary Refill Less than 3 Seconds, Edema - Edema has improved. Skin: No rashes, No breakdown Musculoskeletal: No Tenderness to Palpation of Joints or Extremities Neurological: Cranial nerves II-XII grossly intact Psych/Mental Status: Normal Affect, Appropriate - Physical Exam Vitals/I&O's: Vital Signs Temp Pulse Resp BP Pulse Ox 98.2 F 86 17 126/90 H 95 03/27/19 03:00 03/27/19 06:32 03/27/19 06:32 03/27/19 06:00 03/27/19 06:32 Oxygen Flow Rate (L/min) 2 Oxygen Delivery Method Room Air Weight: 267 lb 13.786 oz Body Mass Index (BMI) 39.6 Intake and Output for Last 24 Hours 03/25/19 03/26/19 03/27/19 23:59 23:59 23:59 Intake Total 3161.75 / 3401.75 1880.0 / 2180.0 300 / 300 Output Total 2050 / 2350 1950 / 2400 450 / 450 Balance 1111.75 / 1051.75 -70.0 / -220.0 -150 / -150 Laboratory Results 03/26/19 11:22: POC Glucose 157 H 03/26/19 14:19: Activated Clotting Time 147 H 03/26/19 16:14: POC Glucose 97 03/26/19 21:16: POC Glucose 152 H 03/27/19 03:40: Sodium 141, Potassium 3.6, Chloride 103, Carbon Dioxide 29.0, Anion Gap 9, BUN 41 H, Creatinine 1.88 H, Estim Creat Clear Calc 41.94, Est GFR (MDRD) Af Amer 48 L, Est GFR (MDRD) Non-Af 39 L, BUN/Creatinine Ratio 21.8 H, Glucose 126 H, Calcium 8.2 L, Total Bilirubin 0.70, AST 17, ALT 44, Alkaline Phosphatase 36 L, Total Protein 5.9 L, Albumin 2.6 L, Globulin 3.3, Albumin/Globulin Ratio 0.8 L 03/27/19 03:40: WBC 7.9, RBC 4.84, Hgb 13.9, Hct 43.1, MCV 89.0, MCH 28.7, MCHC 32.3, RDW Std Deviation 43.4, RDW Coeff of Donna 13.3, Plt Count 245, MPV 10.8 Current Medications Acetaminophen (Tylenol) 650 mg PO Q6H PRN PRN PRN Reason: Pain Score 1-3/10 Albuterol/Ipratropium (Duoneb) 3 ml INHALATION Q4H.RT [facility] Last Admin: 03/27/19 06:31 Dose: 3 ml Documented by: Amlodipine Besylate (Norvasc) 10 mg PO DAILY [facility] Last Admin: 03/26/19 08:03 Dose: 10 mg Documented by: Aspirin (Ecotrin) 81 mg PO DAILY@0800 [facility] Atorvastatin Calcium (Lipitor) 80 mg PO QHS [facility] Last Admin: 03/26/19 21:07 Dose: 80 mg Documented by: Atropine Sulfate () 0.5 mg IV UD PRN PRN Reason: HR <50 bpm Carvedilol (Coreg) 12.5 mg PO BID [facility] Last Admin: 03/26/19 22:33 Dose: 12.5 mg Documented by: Clopidogrel Bisulfate (Plavix) 75 mg PO DAILY [facility] Dextrose (D50w Syringe) 0 gm IV X1 PRN; Protocol PRN Reason: Hypoglycemia Diazepam (Valium) 5 mg PO Q6H PRN PRN PRN Reason: BACK SPASMS/ANXIETY Escitalopram Oxalate (Lexapro) 10 mg PO DAILY [facility] Last Admin: 03/26/19 08:03 Dose: 10 mg Documented by: [facility]ricor) [facility] Last Admin: 03/26/19 08:02 Dose: 145 mg Documented by: Glucagon () 1 mg IM .X1 PRN PRN Reason: Hypoglycemia Guaifenesin (Robitussin) 20 ml PO Q4H PRN PRN PRN Reason: COUGH Heparin Sodium (Beef Lung) (Heparin 500 Unit/5 Ml (100/Ml)) 500 unit IV UD PRN PRN Reason: HEPARIN FLUSH Hydralazine HCl (Apresoline Iv) 10 mg IV Q4H PRN PRN PRN Reason: sbp>170 MMHG Hydralazine HCl (Apresoline) 25 mg PO BID [facility] Last Admin: 03/26/19 21:08 Dose: 25 mg Documented by: Sodium Chloride () 250 mls @ 15 mls/hr IV .[id number] PRN PRN Reason: Saline Flush Last Infusion: 03/25/19 18:22 Dose: 0 mls/hr Documented by: Sodium Chloride () 1,000 mls @ 0 mls/hr IV .Q0M TOSHIA Insulin Glargine (Lantus ([facility])) 5 units SC DINNER [facility] Last Admin: 03/26/19 17:25 Dose: 5 u Documented by: Insulin Human Lispro (Humalog Kwikpen ([facility])) 0 unit SC ACHS [facility]; Protocol Last Admin: 03/27/19 08:22 Dose: Not Given Documented by: Labetalol HCl (Trandate) 5 mg IV X1 PRN PRN Reason: SBP > 160 when pulling sheath Lisinopril (Zestril) 10 mg PO BID [facility] Last Admin: 03/26/19 21:10 Dose: 10 mg Documented by: Morphine Sulfate () 2 mg IV Q3H PRN PRN PRN Reason: Pain Score 6-10/10 Nitroglycerin (Nitrostat) 0.4 mg SUBLINGUAL Q5M PRN PRN Reason: CARDIAC/CHEST PAIN Ondansetron HCl (Zofran) 4 mg IV Q8H PRN PRN PRN Reason: NAUSEA/VOMITING Polyethylene Glycol (Miralax) 17 gm PO DAILY [facility] Last Admin: 03/26/19 08:03 Dose: Not Given Documented by: Potassium Chloride (K-Dur) 40 meq PO X1 ONE Stop: 03/27/19 08:05 Prochlorperazine Edisylate (Compazine Iv) 5 mg IV Q4H PRN PRN PRN Reason: Breakthrough Nausea/Vomiting Senna/Docusate Sodium (Senokot-S, Diane-Colace) 2 tablet PO BID PRN PRN PRN Reason: Constipation Sodium Chloride () 10 - 40 ml IV UD PRN PRN Reason: SALINE FLUSH Last Admin: 03/26/19 11:26 Dose: 10 ml Documented by: Sodium Chloride () 500 ml IV BOLUS PRN PRN Reason: VASO-VAGAL PROTOCOL Zolpidem Tartrate (Ambien (Generic)) 7.5 mg PO QHS PRN PRN PRN Reason: INSOMNIA Last Admin: 03/26/19 22:33 Dose: 7.5 mg Documented by: Discharge Activity: May Not Drive Weight Bearing Status: Weight bearing as tolerated Call your doctor if you observe: Fever of 101 or Higher, Inability to urinate, Inability to have a bowel movement, Shortness of breath, Dizziness, Fainting spells, Swelling in the ankles, Chest pain, Increased palpitations (irregular heartbeat), Uncontrolled pain Home Medications: Medications to take at Discharge Potassium Chloride [Klor-Con 10] 20 meq PO BID 10/06/16 Triamterene/Hydrochlorothiazid [Dyazide 37.5-25 Capsule] 1 ea PO DAILY 10/06/16 Aspirin 81 mg PO DAILY 01/05/17 Amlodipine Besylate [Norvasc] 10 mg PO DAILY #30 tab 03/27/19 Aspirin E.C. [Ecotrin] 81 mg PO DAILY@0800 #30 tab 03/27/19 Atorvastatin Calcium [Lipitor] 80 mg PO QHS #30 tab 03/27/19 Carvedilol [Coreg (Beta Ivone)] 12.5 mg PO BID #60 tab 03/27/19 Clopidogrel Bisulfate [Plavix] 75 mg PO DAILY #30 tab 03/27/19 Escitalopram Oxalate [Lexapro] 10 tab PO DAILY #30 tab 03/27/19 Furosemide [Lasix] 40 mg PO DAILY #30 tab 03/27/19 Lisinopril [Zestril] 10 mg PO BID #60 tab 03/27/19 Nitroglycerin (INPATIENT USE) [Nitrostat] 0.4 mg SUBLINGUAL Q5M PRN #30 tab.subl 03/27/19 Potassium Chloride [K-Dur] 20 meq PO BID #60 tab 03/27/19 Zolpidem Tartrate [Ambien] 5 mg PO QHS PRN PRN #30 tab 03/27/19 hydrALAZINE [Apresoline] 25 mg PO BID #60 tab 03/27/19 Following Prescrptions Were Given to Patient: Zolpidem Tartrate [Ambien] 5 mg PO QHS PRN PRN #30 tab PRN Reason: Insomnia Prescription Printed hydrALAZINE [Apresoline] 25 mg PO BID #60 tab Transmission Status: Received by [facility] #30 Carvedilol [Coreg (Beta Ivone)] 12.5 mg PO BID #60 tab Transmission Status: Received by [facility] #30 Aspirin E.C. [Ecotrin] 81 mg PO DAILY@0800 #30 tab Transmission Status: Received by [facility]30 Potassium Chloride [K-Dur] 20 meq PO BID #60 tab Transmission Status: Received by [facility]30 Furosemide [Lasix] 40 mg PO DAILY #30 tab Transmission Status: Received by [facility]30 Escitalopram Oxalate [Lexapro] 10 tab PO DAILY #30 tab Transmission Status: Received by [facility]30 Atorvastatin Calcium [Lipitor] 80 mg PO QHS #30 tab Transmission Status: Received by [facility] Nitroglycerin (INPATIENT USE) [Nitrostat] 0.4 mg SUBLINGUAL Q5M PRN #30 tab.subl PRN Reason: Cardiac/Chest Pain Transmission Status: Received by [facility] Amlodipine Besylate [Norvasc] 10 mg PO DAILY #30 tab Transmission Status: Received by [facility]30 Clopidogrel Bisulfate [Plavix] 75 mg PO DAILY #30 tab Transmission Status: Received by [facility]30 Lisinopril [Zestril] 10 mg PO BID #60 tab Transmission Status: Received by [facility]30 Other Amb Orders: Phase II, Outpatient Cardiac Rehab Location: None Selected Primary Care Physician: Anjel Li MD [Primary Care Provider] - Please follow up with your Primary Care Physician in: in 1-2 week Please Follow Up With: Adi Orellana MD When: as scheduled Please Follow Up With: Tomas Alas MD When: CKD stage 3 on diuretics Medical Necessity - Tobacco Use Smoking Status: Current every day smoker Tobacco Use: Cigarettes Meaningful Use Info Meaningful Use Diagnoses (Choose all that apply): CHF - CHF SAM/ARB ordered at discharge?: Yes Documented LVEF (%): 45 Code Visit Inpatient E&M: 88102 Disch Hosp
[2019-03-27] MEDS: Aspirin E.C. 81 MG Tablet PO (08:24)
[2019-03-27] MEDS: amLODIPine 10 MG Tablet PO (08:25)
[2019-03-27] MEDS: Clopidogrel Bisulfate 75 MG Tablet PO (08:25)
[2019-03-27] MEDS: Carvedilol 12.5 MG Tablet PO (08:29)
[2019-03-27] MEDS: Lisinopril 10 MG Tablet PO (08:29)
[2019-03-27 08:30] LABS: Bedside Glucose 125 mg/dL (70-110)
[2019-03-27 08:42] LABS: Cholesterol 190 mg/dL (200); High Density Lipoprotein 28 mg/dL; Triglycerides 279 mg/dL; Very Low Density Lipoprotein 56 mg/dL (5-40)
--- NOTE | 2019-03-27 08:43 | PN.CARD_ITS ---
Subjectve: Patient seen and evaluated. Appears to be doing much better. No chest pain, no arrhythmias noted Objective: Vital Signs Temp Pulse Resp BP Pulse Ox 98.2 F 86 17 126/90 H 95 03/27/19 03:00 03/27/19 06:32 03/27/19 06:32 03/27/19 06:00 03/27/19 06:32 Oxygen Flow Rate (L/min) 2 Oxygen Delivery Method Room Air Weight: 267 lb 13.786 oz Body Mass Index (BMI) 39.6 Intake and Output for Last 24 Hours 03/25/19 03/26/19 03/27/19 23:59 23:59 23:59 Intake Total 3161.75 / 3401.75 1880.0 / 2180.0 300 / 300 Output Total 2050 / 2350 1950 / 2400 450 / 450 Balance 1111.75 / 1051.75 -70.0 / -220.0 -150 / -150 General: Awake, Alert, Oriented x 3 HEENT: PERRL, EOMI, Sclera Non Icteric Neck: Supple, Good ROM, No Lymph Node Enlargement Lungs: Clear to auscultation Cardiovascular: Regular Rhythm, Normal S1, Normal S2, No Murmurs, No Rubs, No Gallops Vascular: No Carotid Bruits, Normal Femoral Pulses, Normal Radial Pulses, Normal Dorsalis Pedal Pulse, Normal Posterior Tibial Pulses Abdomen: Bowel Sounds Present, Soft, Non Tender, No HSM, No Organomegaly Extremities: No Cyanosis, No Clubbing, No edema Musculoskeletal: No Erythema Skin: No Rashes Lymphatic: No Lymph Node Enlargement Neurological: No Focal Motor or Sensory Deficit Psych/Mental Status: Appropriate 03/27/19 03:40: Sodium 141, Potassium 3.6, Chloride 103, Carbon Dioxide 29.0, Anion Gap 9, BUN 41 H, Creatinine 1.88 H, Est GFR (MDRD) Af Amer 48 L, Est GFR (MDRD) Non-Af 39 L, BUN/Creatinine Ratio 21.8 H, Glucose 126 H, Calcium 8.2 L, Total Bilirubin 0.70 03/27/19 03:40: WBC 7.9, RBC 4.84, Hgb 13.9, Hct 43.1, MCV 89.0, MCH 28.7, MCHC 32.3, Plt Count 245, MPV 10.8 03/27/19 03:40: Triglycerides 279 H, Cholesterol 190, LDL Cholesterol 106, VLDL Cholesterol 56 H, HDL Cholesterol 28 L Rhythm: EKG: ECHO: Stress Test: Cardiac Cath: PCI: CT Surgery: Holter monitor: EPS: PPM: CXR: Chest CT Scan: Medical Necessity - Tobacco Use Smoking Status: Current every day smoker Tobacco Use: Cigarettes Assessment/Plan 1. Acute congestive heart failure-systolic * Patient presents with marked elevation in blood pressure and short of breath with bilateral pleural effusions and an elevated proBNP. The above is all consistent with congestive heart failure. His echocardiogram demonstrated globally reduced left ventricular systolic function. * Recommendation at this time will be to optimize his medical therapy by giving him intravenous Lasix * Continue blood pressure medication * Continue beta-hitesh * Further recommendations will depend on his clinical response * We will continue Lasix 40 mg a day 2. Marked hypertension * The patient presents with a hypertensive urgency, likely secondary to medication noncompliance. * His medications have been reinstituted and we have emphasized to him the importance of taking his medications. * 3. Coronary artery disease * He does have a mildly abnormal troponin. He has known coronary artery disease status post bypass surgery. * He did undergo cardiac catheterization yesterday which demonstrated a patent left internal mammary artery to the left anterior descending artery and a saphenous vein graft to the right coronary artery which had a 70% eccentric stenosis of the ring which was angioplastied and stented. * He appears to have done well this morning and the plan would be for him to follow-up as an outpatient. He does have distal disease in the left anterior descending artery distal to the anastomotic point. We will see how he does clinically before deciding whether he needs to have this angioplastied. * 4. Chronic kidney disease. * He does have evidence of chronic kidney disease. * We will continue to follow his kidney function. * * Thank you for allowing me to participate in the care of your patient. Please don't hesitate to call if any issues arise
[2019-03-27] MEDS: Fenofibrate 145 MG Tablet PO (09:27)
[2019-03-27] MEDS: Furosemide 40 MG Tablet PO (09:27)
[2019-03-27] MEDS: hydrALAZINE 25 MG Tablet PO (09:27)
[2019-03-27] MEDS: Escitalopram Oxalate 10 MG Tablet PO (09:29)
--- NOTE | 2019-03-27 10:48 | CASEMGMT ---
Pt does not have prescription coverage. TYLOR called [facility] to find out the cost of pt's meds. The total without Ambien is $109, the Ambien at most would be $51. TYLOR spoke w/pt, reviewed the cost of all the meds but Ambien is $109, and that Ambien is $51 at the most. TYLOR wrote down the cost of each individual medication for pt. Pt states he can afford the cost of his medications. Pt states he has a good RX discount card for the Ambien also so should be able to cover the cost of this as well. 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 RN is aware. MARY Montes
--- NOTE | 2019-03-27 14:47 | EKG12_ITS ---
Test Reason : POST HEART CATH Blood Pressure : / mmHG Vent. Rate : 098 BPM Atrial Rate : 098 BPM P-R Int : 134 ms QRS Dur : 094 ms QT Int : 398 ms P-R-T Axes : 072 091 233 degrees QTc Int : 508 ms Sinus rhythm with occasional Premature ventricular complexes ST & T wave abnormality Prolonged QT Abnormal ECG No previous ECGs available Confirmed by NEO ALANIS, COLE ([id number]), associate editor JULES TURCIOS ([id number] on 04/07/2019 1:00:19 PM Referred By: Kaz Casey Confirmed By:COLE LARSON MD
== END 2019-03-27 12:45 | disposition home or self-care (01) | DRG 246 ==
LOC: ED 12:00 → PCU 13:15 → ICU 03-26 14:42
PROVIDERS: Internal Medicine Cardiovascular Disease; Admitting Provider Internal Medicine; Emergency Provider Emergency Medicine; Family Provider Family Medicine; PCP Family Medicine; Referring Provider Internal Medicine; Visit Provider Internal Medicine
DX: I21.4 Non-ST elevation (NSTEMI) myocardial infarction (principal); I50.23 Acute on chronic systolic (congestive) heart failure; I13.0 Hypertensive heart and chronic kidney disease with heart failure and stage 1 through stage 4 chronic kidney disease, or unspecified chronic kidney disease; I25.810 Atherosclerosis of coronary artery bypass graft(s) without angina pectoris; I25.5 Ischemic cardiomyopathy; E66.9 Obesity, unspecified; N18.3 Chronic kidney disease, stage 3 (moderate); F17.210 Nicotine dependence, cigarettes, uncomplicated; I16.0 Hypertensive urgency; I25.10 Atherosclerotic heart disease of native coronary artery without angina pectoris; I25.82 Chronic total occlusion of coronary artery; E78.5 Hyperlipidemia, unspecified; Z68.39 Body mass index [BMI] 39.0-39.9, adult; Z95.1 Presence of aortocoronary bypass graft; Z90.49 Acquired absence of other specified parts of digestive tract
CPT/HCPCS: 36415; 80048; 80053; 80061; 82962; 83036; 83735; 84100; 84132; 84443; 84484; 85025; 85027; 85347; 92937; 93005; 93306; 93459; 94002; 94003; 94640; 99251; 99283; 99406; C1760; J7030; J7040; J7050; Q9957; Q9967; A4216; C1725; C1769; C1874; C1884; C1887; C1894; C8929; C9604; G0463; J1940

== ENCOUNTER → 2021-09-14 | Outpatient (CLI) | payer SELFPAY ==
[2019-03-26 15:21] VITALS: BMI 39.6
--- NOTE | 2021-09-14 09:18 | RAD_ITS ---
STUDY: X-RAY - LEFT KNEE REASON FOR EXAM: Male, 61 years old. Pain. Evaluate for arthritis. TECHNIQUE: 4 view(s) of the knee. COMPARISON: None. FINDINGS: Osteopenia. Normal visualized distal femur. Normal visualized proximal tibia and fibula. Normal proximal tibiofibular articulation. Mild medial compartmental arthrosis. Normal lateral femorotibial compartment. Lateral tilt and subluxation of the patella with mild arthrosis of the lateral patellofemoral compartment. Multiple surgical clips projected over the medial soft tissues adjacent to the knee. RAD/Knee 4 or More Views IMPRESSION: Osteopenia with medial and patellofemoral compartment arthrosis. No acute abnormality, chondrocalcinosis, erosive changes or periostitis. Electronically Signed: Davion Miranda MD at 13:56 EDT ,
--- NOTE | 2021-09-14 09:18 | RAD_ITS ---
STUDY: X-RAY - RIGHT KNEE REASON FOR EXAM: Male, 61 years old. Pain. Evaluate for arthritis. TECHNIQUE: 4 view(s) of the knee. COMPARISON: None. FINDINGS: Osteopenia. Normal visualized distal femur. Normal visualized proximal tibia and fibula. Normal proximal tibiofibular articulation. Mild medial compartmental arthrosis. Normal lateral femorotibial compartment. Lateral tilt and subluxation of the patella with mild arthrosis of the lateral patellofemoral compartment. The soft tissue structures are unremarkable. RAD/Knee 4 or More Views IMPRESSION: Osteopenia with medial and patellofemoral compartment arthrosis. No acute abnormality, chondrocalcinosis, erosive changes or periostitis. Electronically Signed: Davion Miranda MD at 13:56 EDT ,
== END | disposition home or self-care (01) ==
PROVIDERS: PCP Family Medicine; Referring Provider Family Medicine; Visit Provider Family Medicine
DX: M19.90 Unspecified osteoarthritis, unspecified site (principal)
CPT/HCPCS: 73564